=== PATIENT | male | born 1990 | race Caucasian/White ===

== ENCOUNTER 2025-03-01 11:34 | Emergency (ER) | payer SELFPAY ==
[2025-03-01 11:35] VITALS: BP 161/131; PULSE 78; RESP 16; TEMP 36.9; O2SAT 96
[2025-03-01 11:49] LABS: Hematocrit 45.7 % (40-54); Hemoglobin 15.3 g/dL (13.0-16.5); Immature Granulocytes Count 0.020 X10^3/uL (0.0-0.0); Mean Corp Hgb Conc 33.5 g/dL (32-36); Mean Corpuscular Volume 84.9 fL (80-94); Mean Platelet Vol. 9.2 fl (6.2-12.0); NRBC Flagged by Analyzer 0 % (0-5); POSITIVE DIFFERENTIAL YES; Platelet Count 474 K/mm3 (150-450); RBC Distribution Width CV 12.0 % (11.6-14.6); RBC Distribution Width SD 37.1 fl (35.1-43.9); Red Blood Count 5.38 M/mm3 (4.6-6.2); White Blood Count 10.9 K/mm3 (4.4-11.0)
[2025-03-01 11:50] LABS: Differential Indicated SCAN CRITERIA MET
[2025-03-01 12:00] VITALS: BMI 30.4
[2025-03-01 12:12] LABS: AST(SGOT) 54 U/L (<=37); Alanine Aminotransfer ALT/SGPT 54 U/L (<=46); Albumin, Serum 4.9 g/dL (3.5-5.0); Alkaline Phosphatase 43 U/L (40-129); Anion Gap 16 (5-15); BUN 13 mg/dL (4-19); BUN/Creat Ratio 13.4 RATIO (10-20); Calcium,Total 9.7 mg/dL (7.6-11.0); Carbon Dioxide 24.0 mmol/L (21.0-32.0); Chloride 100 mmol/L (98-108); Estimated Creatinine Clearance 122.52 ml/min (50-250); Globulin 2.9 g/dL (2.2-4.2); Glucose 125 mg/dL (70-99); Lipase 36 U/L (13-75); Potassium 3.3 mmol/L (3.3-5.1)
--- NOTE | 2025-03-01 12:52 | US_ITS ---
EXAM: US Abdomen Limited, Gallbladder CLINICAL INDICATION: PAIN TECHNIQUE: Real-time ultrasound of the right upper quadrant with image documentation. COMPARISON: No relevant prior studies available. FINDINGS: LIVER: Liver measures up to 6.3 cm. Fatty infiltration of the liver. GALLBLADDER: Negative Eldridge's sign was reported by the artistic associate. Gallbladder calculus measuring up to 1.1 cm. Gallbladder polyp measuring up to 0.4 cm. COMMON BILE DUCT: Unremarkable as visualized. No stones. No dilation. PANCREAS: Unremarkable as visualized. RIGHT KIDNEY: Unremarkable. No stones. No hydronephrosis. The right kidney measures 10.0 x 5.2 x 4.6 cm. US/Gallbladder IMPRESSION: 1. Fatty infiltration of the liver. 2. Cholelithiasis and gallbladder polyp. Reading [facility]
[2025-03-01 13:34] VITALS: PULSE 82; RESP 16
--- NOTE | 2025-03-01 13:45 | ED.VIS.GI ---
HPI HPI - GI History of Present Illness Chief Complaint: Abd Pain Informant: patient and spouse/S.O. Narrative Narrative: Presents here send other significant mid abdominal pain while at work. Started at 9 AM. He had to leave work he states he felt like his stomach going to burst. Ports symptoms started after eating peanut butter. Early for breakfast had a banana and oatmeal. Denies nausea or vomiting. On arrival to the ED symptoms resolved. A week ago had similar symptoms today to eat a large meal for dinner had sloppy Gómez. Symptoms woke him at 3 AM which was transient. Prior to that no issues of similar. No fever chills or sweats. No abdominal surgeries in the past. No urinary symptoms. Prior similar symptoms: Yes PFSH PFSH Home Medications ?Medication ?Instructions ?Recorded ?Last Taken ?Type NK 03/01/25 Unknown History Allergy/AdvReac Type Severity Reaction Status Date / Time No Known Allergies Allergy Verified 03/01/25 11:39 Social History Smoking Status: Never smoker ROS ROS ED Constitutional Constitutional ED: Denies fever(s) Cardiovascular Cardiovascular: Denies chest pain Respiratory/Chest Respiratory/Chest: Denies cough Gastrointestinal Gastrointestinal: Reports abdominal pain; Denies diarrhea or vomiting Genitourinary Genitourinary ED: Denies dysuria Musculoskeletal Musculoskeletal: Denies none Integumentary Denies rash or wounds Neurologic Neurologic: Denies weakness EXAM Physical Exam Const Vital Signs: 03/01/25 11:35 03/01/25 13:34 Temperature 98.4 F Temperature Source Oral Pulse Rate 78 82 Respiratory Rate 16 16 Blood Pressure 161/131 H Blood Pressure Mean 141 Pulse Ox 96 Oxygen Delivery Method Room Air Room Air Positive well nourished and well developed General Appearance ED: well developed and NAD HEENT Reports moist mucous membranes normocephalic and atraumatic Eyes General Eye ED: Yes normal appearance of both eyes Neck full ROM Chest Wall Chest: Negative for tenderness Resp normal respiratory effort and normal air movement Effort and Inspection: symmetric chest movement; Negative for respiratory distress Cardio regular rate, regular rhythm and no murmurs Peripheral Pulses: pulses 2+ throughout GI normal to inspection, nondistended, normoactive bowel sounds and non-tender GI Narrative: Negative Eldridge's or McBurney's tenderness. Palpation: Negative for guarding or rebound tenderness present Extremity normal to inspection General Extremety ED: Negative for edema or tenderness General Extremity: Negative for edema Neuro oriented x3 and no sensory deficits noted Sensorium / Orientation: awake and alert Skin no rashes or lesions noted and no wounds MDM MDM MDM Narrative Medical decision making narrative: Interventions / MDM: Differential diagnosis: Biliary colic, gallstones, gallbladder polyp Diagnosis considered but do not suspect: Pancreatitis however lipase normal. No clinical cholecystitis. My EKG interpretation: N/A Imaging independently reviewed and interpreted by myself: Right upper quadrant ultrasound: 1.1 cm gallstone, gallbladder polyp with 0.4 cm. No pericholecystic fluid. External documents reviewed: N/A Test considered but not ordered:N/A ED course: Patient symptoms resolved during my examination. Nursing protocol was initiated prior to my evaluation. Labs returned white count normal at 10.9 lipase normal. Slight elevated liver enzymes AST 54 and ALT of 54. Total bili was 0.86. However with history potential biliary colic with eating oily foods twice. I will obtain a right upper quadrant ultrasound for further evaluation. 1520: Patient remains asymptomatic gallstones with gallbladder polyp on ultrasound. Discussed bland diet avoiding dairy foods, greasy foods, fatty foods. I spoke with surgeon Dr. Mancini, who will follow-up with him in the office. Patient understands agrees with plan. All questions were answered. Re-evaluation: stable Disposition discussed with patient/family/significant other: Patient and significant other Case discussed with consulting clinician: General Surgery This note was generated with [employer] dictation software. It may contain incorrect words, spelling, and punctuation that were not noted in checking the note before signing. Lab Data Attestation: I reviewed the patient's lab results. Labs: Laboratory Results - last 24 hr 03/01/25 11:15 WBC 10.9 RBC 5.38 Hgb 15.3 Hct 45.7 MCV 84.9 MCH 28.4 MCHC 33.5 RDW Std Deviation 37.1 RDW Coeff of Vilma 12.0 Plt Count 474 H MPV 9.2 Immature Gran % (Auto) 0.200 Neut % (Auto) 40.1 L Lymph % (Auto) 48.4 H [place] % (Auto) 9.0 Eos % (Auto) 1.6 Baso % (Auto) 0.7 Absolute Neuts (auto) 4.4 Absolute Lymphs (auto) 5.28 H Nucleated RBC % 0 Sodium 140 Potassium 3.3 Chloride 100 Carbon Dioxide 24.0 Anion Gap 16 H BUN 13 Creatinine 1.00 Estim Creat Clear Calc 122.52 Est GFR (MDRD) Non-Af 100 BUN/Creatinine Ratio 13.4 Glucose 125 H Calcium 9.7 Total Bilirubin 0.86 AST 54 H ALT 54 H Alkaline Phosphatase 43 Total Protein 7.8 Albumin 4.9 Globulin 2.9 Albumin/Globulin Ratio 1.7 Lipase 36 Radiography Diagnostic Testing: Clinical Impression(s) from Imaging Studies Gallbladder Ultrasound 03/01/25 12:52 IMPRESSION: 1. Fatty infiltration of the liver. 2. Cholelithiasis and gallbladder polyp. Reading Location: [facility] Discharge Plan Triage Chief Complaint: Abd Pain ED Provider: Loy Jennings Dx/Rx/DC Orders Clinical Impression: Biliary colic, Gallstone, Gallbladder polyp Instructions: ED Gallstones with Biliary Colic Prescriptions: No Action NK Primary Care Provider: Eitan Michael Referrals: Eitan Michael MD [Primary Care Provider] - Angie Mancini MD [Med Staff - Active Staff] - 1-2 Weeks Activity Restrictions/Additional Instructions: Gallstones with gallbladder polyp. Avoid dairy foods, greasy foods, fatty foods. Chase diet. Follow-up with Dr. Mancini. If symptoms return or worsens, return to the ED for reevaluation. Print Language: Urdu Disposition Disposition: Home, Self Care
[2025-03-01 15:42] VITALS: BP 120/70; PULSE 66; RESP 12; TEMP 36.8; O2SAT 100
== END 2025-03-01 15:43 | disposition home or self-care (01) ==
PROVIDERS: Emergency Provider Emergency Medicine; PCP Family Medicine; Visit Provider Emergency Medicine
DX: K80.70 Calculus of gallbladder and bile duct without cholecystitis without obstruction (principal)
CPT/HCPCS: 76705; 80053; 83690; 85025; 99285

== ENCOUNTER → 2025-03-10 | Outpatient (CLI) | payer SELFPAY ==
[2025-03-10 14:23] LABS: AST(SGOT) 27 U/L (<=37); Alanine Aminotransfer ALT/SGPT 114 U/L (<=46); Albumin, Serum 4.8 g/dL (3.5-5.0); Alkaline Phosphatase 49 U/L (40-129); Bilirubin, Direct 0.26 mg/dL (0.00-0.30); Globulin 2.8 g/dL (2.2-4.2)
== END | disposition home or self-care (01) ==
PROVIDERS: PCP Family Medicine; Referring Provider Surgery; Visit Provider Surgery
DX: R79.89 Other specified abnormal findings of blood chemistry (principal)
CPT/HCPCS: 36415; 80076

== ENCOUNTER → 2025-04-05 | Outpatient (CLI) | payer SELFPAY ==
[2025-04-05 17:47] LABS: AST(SGOT) 24 U/L (<=37); Alanine Aminotransfer ALT/SGPT 35 U/L (<=46); Albumin, Serum 4.7 g/dL (3.5-5.0); Alkaline Phosphatase 41 U/L (40-129); Bilirubin, Direct 0.24 mg/dL (0.00-0.30); Globulin 2.7 g/dL (2.2-4.2)
== END | disposition home or self-care (01) ==
LOC: LAB 16:50
PROVIDERS: PCP Family Medicine; Referring Provider Physician Assistant; Visit Provider Physician Assistant
DX: R10.11 Right upper quadrant pain (principal)
CPT/HCPCS: 36415; 80076

== ENCOUNTER 2025-04-08 07:34 | Day surgery (SDC) | payer SELFPAY ==
[2025-04-08] VITALS (9 sets, daily range): BP systolic 115–149; BP diastolic 72–100; PULSE 71–84; RESP 16; TEMP 36.1–36.6; O2SAT 94–100; BMI 29.5
--- OUTSIDE RECORDS SUMMARY | 2025-04-08 07:55 | XMS RPT_ITS | CCD ---
Author Organization [facility] Care Team Providers Care General Manager In Training Name Role Phone Dr. Loy Jennings DO Emergency Provider [phone] Alec JOHNSON, Dr. Laird Primary Care Provider Alec JOHNSON, Eitan Fernandez Unavailable Chandra JOHNSON, Adan Murphy Unavailable Valentín TELEVISION NEWS PHOTOGRAPHER, Phyllis Peoples Unavailable Unavailable Alfredo TELEVISION NEWS PHOTOGRAPHER, Julieta Garay Unavailable Unavailab le Unavailable Unavailable Dr. Loy Jennings DO Attending Provider Dr. Eitan Michael MD Referring Provider Dr. Angie Mancini MD Attending Provider Addis JOHNSON, Dr. Adams Referring Provider Eitan Michael Primary Care Unavailable Angie Mancini Attending Unavailable Freda Ford Attending Unavailable Freda Ford Referring Unavailable Eitan Michael Primary Care Unavailable Eitan Michael Primary Care Unavailable Eitan Michael Referring Unavailable Angie Mancini Attending Unavailable Eitan Michael Referring Unavailable Angie Mancini Attending Unavailable Eitan Michael Primary Care Unavailable Eitan Michael Primary Care Unavailable Angie Mancini Attending Unavailable Angie Mancini Referring Unavailable Eitan Michael Primary Care Unavailable Loy Jennings Attending Unavailable Freda Soto PA-C Attending Provider Freda Soto PA-C Referring Provider Medications Current Medications Medication Drug Class(es) Dates Sig (Normalized) Sig (Original) omeprazole 40 mg delayed release oral capsule (3 sources) Proton Pump Inhibitor Start: 03-10-2025 take 1 capsule by mouth once daily Omeprazole 40 mg capsule,delayed release(DR/EC) Active 40 mg PO daily 30 March 10, 2025 12:00am swallow whole; do not crush, chew, dissolve, cut, break raNITIdine 150 mg oral tablet (5 sources) Histamine-2 Receptor Antagonist Start: 12-10-2017 take 1 tablet by mouth twice daily RaNITidine HCl 150 MG Oral Tablet ; 1 (one) Tablet bid for 0 days Quantity: 60 {Tablet} Refills: 0 Ordered: 10-Dec-2017 MD Eitan Micahel Start: 10-Dec-2017 Completed/Discontinued Medications Medication Drug Class(es) Dates Sig (Normalized) Sig (Original) acyclovir 800 mg oral tablet (5 sources) Herpesvirus Nucleoside Analog DNA Polymerase Inhibitor, Herpes Simplex Virus Nucleoside Analog DNA Polymerase Inhibitor, Herpes Zoster Virus Nucleoside Analog DNA Polymerase Inhibitor Start: 03-01-2014 End: 03-08-2014 ACYCLOVIR, 800MG (Oral Tablet) ; 1 (one) Tablet every four hours, five times daily for 7 days Quantity: 35 {Tablet} Refills: 0 Ordered: 01-Mar-2014 MD Adan Artis Start: 01-Mar-2014 End: 08-Mar-2014 Status: Inactive Problems Active Problems Problem Classification Problem Date Documented Date Episodic/Chronic Abdominal pain (14 sources) Right upper quadrant pain; Translations: [Right upper quadrant pain] Onset: 03-08-2025 03-11-2025 Episodic Biliary tract disease (19 sources) Gallstone; Translations: [Calculus of gallbladder without cholecystitis without obstruction] Onset: 04-06-2025 03-01-2025 Episodic Esophageal disorders (10 sources) Gastroesophageal reflux disease; Translations: [Gastro-esophageal reflux disease without esophagitis] 12-10-2017 Chronic Other nutritional; endocrine; and metabolic disorders (10 sources) Overweight in adulthood with body mass index of 25 or more but less than 30; Translations: [Body mass index (BMI) 29.0-29.9, adult] 12-10-2017 Episodic Other screening for suspected conditions (not mental disorders or infectious disease) (7 sources) Other specified abnormal findings of blood chemistry; Translations: [Elevated liver function tests] Onset: 04-06-2025 03-10-2025 Episodic Comment on above: Resolved Viral infection (10 sources) Herpes zoster; Translations: [Zoster without complications] 03-01-2014 Episodic Past or Other Problems Problem Classification Problem Date Documented Da te Episodic/Chronic Unclassified (5 sources) Chest pain - The onset of the pain has been gradual and has been occurring in an intermittent pattern for 2 years (started 2 years ago but then cut back caffeine and watched diet and got better but symptoms started up again last fall. Initially it was pressure feeling in mid sternal area but now is more of a pain.). The pain is described as a dull ache. The pain is precipitated by eating. The symptoms are aggravated by food. The symptoms have no relieving factors. There have been no previous evaluations. Note for Chest pain: will radiate under rib cage at times but not sure which side. Pt not sure if related but seems to be getting frequent canker sores in mouth that goes along with time frame of chest pain. No family hx of anything that pt is aware of. reviewed by [facility] 12-10-2017 Unclassified (5 sources) Rash - The onset of the rash has been sudden and has been occurring in a persistent pattern for 4 days. The course has been increasing. The rash is characterized as red and raised above the skin. The rash was first seen on the face (right sided). There has been no progression. There has been associated pain (tingling), erythema and edema. There has been associated pain. 03-01-2014 Unclassified (5 sources) Form Completion Physicals - The patient feels well with no complaints, has good energy level and is sleeping well. The patient has an appropriate balanced diet and takes suppemental vitamins and sleeps on average 6 hours per night. Habits include caffeine use. 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 reviewed by [facility] 02-09-2014 Results Test Name Value Interpretation Reference Range Facility Surgery Visit Reporton 04-06 Surgery Visit Report [facility] [address] [place] [address] OFFICE VISIT Date of Service: 04/06/25 MR#: [id number] Acct: [id number] Name: JESSY TEJEDA Rep #: [id number] : 1990 Provider: Dr. Angie rodrigues MD Age/Sex: 34/M Location: [facility] Status: Signed Intake Vital Signs 03/10/25 13:14 04/06/25 15:02 Height 5 ft 11 in 5 ft 11 in Weight: 215 lb BMI 29.9 BP 128/89 H 142/75 H Blood Pressure Location Rt brachial Rt brachial Position Sitting Sitting Respiration 18 17 Pulse 72 75 Pulse Source Monitor Monitor Temp 97.2 F L Temp Source Temporal Pulse Oximetry (%) 99 100 Oxygen Delivery Method room air room air Intake Visit Reasons: MED CHECK Chief Complaint: med check/gallbladder Is patient in pain?: Yes (occasional twinges/aches right side.) Allergies No Known Allergies Allergy (Verified 04/06/25 15:03) Medications ???Medication ???Instructions ???Recorded ???Confirmed ???Type omeprazole 40 mg capsule,delayed 40 mg PO QDAY #30 caps 03/10/25 Rx release PFSH Medical History Cholelithiases Social History (Updated 03/10/25 @ 13:14 by Jacy De Leon LPN) Smoking Status: Never smoker alcohol intake: never substance use type: does not use HPI HPI HPI: 34-year-old male presents for follow-up for right upper quadrant pain, epigastric pain, cholelithiasis, elevated liver functions. Patient's liver functions are normal on recheck before this appointment. Patient states he does occasionally get some right upper quadrant discomfort depending on what he eats but his sour stomach has improved with the omeprazole. ROS General General: No weight change, appetite, fatigue, colon cancer, breast cancer or weakness HEENT HEENT: No difficulty swallowing, eye injury, eye surgery, swollen glands or hoarseness Endo Endocrine: No thyroid disease, diabetes mellitus, thyroid cancer, Hair loss, heat intolerance or cold intolerance Skin Skin: No rash or changing moles Musc Musculoskeletal: No back problems, arthritis, rheumatoid arthritis, gout or joint pain Cardio Cardiovascular: Yes murmur; No pacemaker, heart disease, atrial fibrillation, high blood pressure, heart attack, heart stent, palpitations, shortness of breath with exertion or chest pain Psych Psychiatric: No depression, anxiety or hearing voices Resp Respiratory: No shortness of breath, No sleep apnea, No cough, No COPD, No asthma, No emphysema and No wheezing Gastro Gastrointestinal: Yes abdominal pain, No nausea or vomiting, No diarrhea, No constipation, No blood in stool, No acid reflux, No hemorrhoids, No ulcers, Yes gallbladder problem and No black,tarry stools [place] Hematologic: No blood thinners, No blood disorders, No bleeding, No anemia and No blood clots Neuro Neurologic: No numbness, No tingling and No weakness Exam Const General: cooperative, healthy appearing, comfortable and no acute distress [facility] Head: normocephalic and atraumatic Neck Neck: supple Resp Effort Inspection: normal respiratory effort Cardio Rate: regular rate GI Inspection: non-distended Skin General: no rashes or lesions noted Neuro General: CN's II-XI intact bilaterally Extrem General: normal to inspection Psych Mental Status: mental status grossly normal Attitude: cooperative Assessment and Plan Assessment and Plan (1) Cholelithiases: Status: Acute (2) Elevated liver function tests: Status: Acute Comment: Resolved (3) Epigastric pain: Status: Acute (4) RUQ pain: Status: Acute Orders: Orders Liver Profile 04/05/25 R10.11 - Right upper quadrant pain Plan Let patient stay on the omeprazole 40 mg p.o. daily Reviewed the anatomy with the patient and discussed the procedure: Robotic/laparoscopi c cholecystectomy with possible cholangiograms, possible open. Review risks including but not limited to bleeding, infection, hernia, bile leak, retained gallstones requiring another procedure ERCP- Endoscopic Retrograde Cholangiopancreatog asher, injury to another organ (bile ducts, common bile duct, small bowel, etc.) and conversion to an open procedure. All questions were answered. Angie Mancini M.D. Pager: [phone] [facility] [address] [place] [address], [address] [place] [address] Office: [phone] Coding Level of Care Code Off vis,est,level 3 Diagnoses Cholelithiases K80.20 Elevated liver function tests R79.89 Epigastric pain R10.13 RUQ pain R10.11 04/06/25 1513 Date Angie Mancini MD Cosigner Signature: Date (more content not included)... Normal [facility] Bilirubin directOrdered By: Freda Soto on 04-05-2025 Bilirubin.direct [Mass/Vol] 0.24 mg/dL 0.00-0.30 [facility] Bilirubin, totalOrdered By: Freda Soto on 04-05-2025 Bilirubin [Mass/Vol] 0.61 mg/dL 0.00-1.30 [facility] - Chemistry and C hemistry - challengeOrdered By: Freda Soto on 04-05-2025 AST [Catalytic activity/Vol] 24 U/L <38 [facility] Liver Profileon 04-05-2025 Albumin [Mass/Vol] 4.7 g/dL Normal 3.5-5.0 [facility] Comment on above: Performed By: #### L 500.3400 #### [facility] [address] [place], [address] ALK PHOS 41 U/L Normal 40-129 [facility] Comment on above: Performed By: #### L 500.3400 #### [facility] [address] [place], [address] ALT [Catalytic activity/Vol] 35 U/L Normal <=46 [facility] Comment on above: Performed By: #### L 500.3400 #### [facility] [address] [place], [address] AST [Catalytic activity/Vol] 24 U/L Normal <=37 [facility] Comment on above: Performed By: #### L 500.3400 #### [facility] [address] [place], [address] Bilirubin [Mass/Vol] 0.61 mg/dL Normal 0.00-1.30 [facility] Comment on above: Performed By: #### L 500.3400 #### [facility] [address] [place], [address] Bilirubin.direct [Mass/Vol] 0.24 mg/dL Normal 0.00-0.30 [facility] Comment on above: Performed By: #### L 500.3400 #### [facility] [address] [place], [place], [id number] ([phone] Globulin (S) [Mass/Vol] 2.7 g/dL Normal 2.2-4.2 [facility] Comment on above: Performed By: #### L 500.3400 #### [facility] [address] [place], [address] T PROT 7.4 g/dL Normal 5.9-8.4 [facility] Comment on above: Performed By: #### L 500.3400 #### [facility] [address] [place], [place], [id number] ([phone]) Serum globulin measurementOr dered By: Freda Soto on 04-05-2025 Globulin (S) [Mass/Vol] 2.7 g/dL 2.2-4.2 [facility] Serum or plasma alanine rome otransferase (ALT) measurementOrdered By: Freda Soto on 04-05-2025 ALT [Catalytic activity/Vol] 35 U/L <47 [facility] Serum or plasma albumin george urement (mass/volume)Ordered By: Freda Soto on 04-05-2025 Albumin [Mass/Vol] 4.7 g/dL 3.5-5.0 [facility] Serum or plasma alkaline brandin sphatase measurementOrdered By: Freda Soto on 04-05-2025 ALP [Catalytic activity/Vol] 41 U/L 40-129 [facility] Total proteinOrdered By: Ronel Soto on 04-05-2025 Protein [Mass/Vol] 7.4 g/dL 5.9-8.4 [facility] Bilirubin directOrdered By: Angie Mancini on 03-10-2025 Bilirubin.direct [Mass/Vol] 0.26 mg/dL 0.00-0.30 [facility] Bilirubin, totalOrdered By: Angie Mancini on 03-10-2025 Bilirubin [Mass/Vol] 0.65 mg/dL 0.00-1.30 [facility] - Chemistry and C hemistry - challengeOrdered By: Angie Mancini on 03-10-2025 AST [Catalytic activity/Vol] 27 U/L <38 [facility] Liver Profileon 03-10-2025 Albumin [Mass/Vol] 4.8 g/dL Normal 3.5-5.0 [facility] Comment on above: Performed By: #### L 500.3400 #### [facility] [address] [place], [address] ALK PHOS 49 U/L Normal 40-129 [facility] Comment on above: Performed By: #### L 500.3400 #### [facility] [address] [place], [address] ALT [Catalytic activity/Vol] 114 U/L High <=46 [facility] Comment on above: Performed By: #### L 500.3400 #### [facility] [address] [place], [address] AST [Catalytic activity/Vol] 27 U/L Normal <=37 [facility] Comment on above: Performed By: #### L 500.3400 #### [facility] [address] [place], [address] Bilirubin [Mass/Vol] 0.65 mg/dL Normal 0.00-1.30 [facility] Comment on above: Performed By: #### L 500.3400 #### [facility] [address] [place], [address] Bilirubin.direct [Mass/Vol] 0.26 mg/dL Normal 0.00-0.30 [facility] Comment on above: Performed By: #### L 500.3400 #### [facility] [address] [place], [address] Globulin (S) [Mass/Vol] 2.8 g/dL Normal 2.2-4.2 [facility] Comment on above: Performed By: #### L 500.3400 #### [facility] [address] [place], [place], [address] T PROT 7.6 g/dL Normal 5.9-8.4 [facility] Comment on above: Performed By: #### L 500.3400 #### [facility] [address] [place], [place], [address] Serum globulin measurementOr dered By: Angie Mancini on 03-10-2025 Globulin (S) [Mass/Vol] 2.8 g/dL 2.2-4.2 [facility] Serum or plasma alanine rome otransferase (ALT) measurementOrdered By: Angie Mancini on 03-10-2025 ALT [Catalytic activity/Vol] 114 U/L High <47 [facility] Serum or plasma albumin george urement (mass/volume)Ordered By: Angie Mancini on 03-10-2025 Albumin [Mass/Vol] 4.8 g/dL 3.5-5.0 [facility] Serum or plasma alkaline brandin sphatase measurementOrdered By: Angie Mancini on 03-10-2025 ALP [Catalytic activity/Vol] 49 U/L 40-129 [facility] Surgery Visit Reporton 03-10 Surgery Visit Report [facility] [address] [place] [address] OFFICE VISIT Date of Service: 03/10/25 MR#: [id number] Acct: [id number] Name: JESSY TEJEDA Rep #: [id number] : 1990 Provider: Dr. Angie rodrigues MD Age/Sex: 34/M Location: [facility] Status: Signed Intake Vital Signs 03/01/25 11:35 03/10/25 13:14 Height 5 ft 11 in 5 ft 11 in Weight: 215 lb BMI 29.9 BP 128/89 H Blood Pressure Location Rt brachial Position Sitting Respiration 18 Pulse 72 Pulse Source Monitor Temp 97.2 F L Temp Source Temporal Pulse Oximetry (%) 99 Oxygen Delivery Method room air Intake Visit Reasons: ER F/U- GALLBLADDER - SELF PAY Chief Complaint: ER F/U- GALLBLADDER Accompanied by: and daughter Is patient in pain?: No Allergies No Known Allergies Allergy (Verified 03/10/25 13:15) Medications ???Medication ???Instructions ???Recorded ???Confirmed ???Type omeprazole 40 mg capsule,delayed 40 mg PO QDAY #30 caps 03/10/25 Rx release PFSH Medical History (Updated 03/11/25 @ 15:[address] Angie Mancini MD) Cholelithiases Social History (Updated 03/10/25 @ 13:14 by Jacy De Leon LPN) Smoking Status: Never smoker alcohol intake: never substance use type: does not use HPI HPI HPI: 34-year-old male presents due to right upper quadrant pain epigastric pain follow-up from ER. Patient states pain started after having coffee and some peanut butter. However patient's other 2 episodes did start in the middle of the night after eating more than 4 hours prior pizza and sloppy [employer]. Patient does admit to having issues with bloating in the right upper quadrant/epigastric pain. Patient currently denies any abdominal pain. Patient states that he was told in the past he may have a hiatal hernia. At the ER on 03/01 patient's LFTs were slightly elevated with AST and ALT of 54 each the other LFTs were normal. Patient does not have previous LFTs here. Patient also had a gallbladder ultrasound which showed cholelithiasis and 1 cm stone and a gallbladder polyp about 4 mm no pericholecystic fluid or Eldridge sign was detected during ultrasound, normal common bile duct. ROS General General: No weight change, appetite, fatigue, colon cancer, breast cancer or weakness HEENT HEENT: No difficulty swallowing, eye injury, eye surgery, swollen glands or hoarseness Endo Endocrine: No thyroid disease, diabetes mellitus, thyroid cancer, Hair loss, heat intolerance or cold intolerance Skin Skin: No rash or changing moles Musc Musculoskeletal: No back problems, arthritis, rheumatoid arthritis, gout or joint pain Cardio Cardiovascular: Yes murmur; No pacemaker, heart disease, atrial fibrillation, high blood pressure, heart attack, heart stent, palpitations, shortness of breath with exertion or chest pain Psych Psychiatric: No depression, anxiety or hearing voices Resp Respiratory: No shortness of breath, No sleep apnea, No cough, No COPD, No asthma, No emphysema and No wheezing Gastro Gastrointestinal: Yes abdominal pain, No nausea or vomiting, No diarrhea, No constipation, No blood in stool, No acid reflux, No hemorrhoids, No ulcers, Yes gallbladder problem and No black,tarry stools [place] Hematologic: No blood thinners, No blood disorders, No bleeding, No anemia and No blood clots Neuro Neurologic: No numbness, No tingling and No weakness Exam Const General: cooperative, healthy appearing, comfortable and no acute distress HENTX Head: normocephalic and atraumatic Neck Neck: supple Resp Effort Inspection: normal respiratory effort Cardio Rate: regular rate GI Inspection: non-distended Palpation: soft and nontender Skin General: no rashes or lesions noted Neuro General: CN's II-XI intact bilaterally Extrem General: normal to inspection Psych Mental Status: mental status grossly normal Attitude: cooperative Assessment and Plan Assessment and Plan (1) Cholelithiases: Status: Acute (2) Elevated liver function tests: Status: Acute (3) Epigastric pain: Status: Acute (4) RUQ pain: Status: Acute Orders: Orders Liver Profile 03/10/25 R79.89 - Other specified abnormal findings of blood chemistry Medications: New omeprazole swallow whole; do not crush, chew, dissolve, cut, break 40 mg PO QDAY 30 caps 3RF Plan Discussed with patient plan to recheck LFTs unsure if they would be elevated due to the gallbladder as there is no inflammation seen on ultrasound of the gallbladder. Discussed that these enzymes are higher would consider doing a laparoscopic cholecystectomy sooner rather than later. Overall patient's history of abdominal pain may be more gastric versus biliary in nature. Will have patient try omeprazole 4 (more content not included)... Normal [facility] Total proteinOrdered By: Jeferson Mancini on 03-10-2025 Protein [Mass/Vol] 7.6 g/dL 5.9-8.4 [facility] Absolute lymphocyte countOrd ered By: ED PROVIDER on 03-01-2025 Lymphocytes Auto (Unsp spec) [#/Vol] 5.28 10*3/uL High 0.83-4.51 [facility] Absolute neutrophil countOrd ered By: ED PROVIDER on 03-01-2025 Neutrophils (Bld) [#/Vol] 4.4 10*3/uL 2.0-7.7 [facility] Anion gap in Serum or Plasma Ordered By: ED PROVIDER on 03-01-2025 Anion gap [Moles/Vol] 16 mmol/L High 5-15 [facility] Automated lymphocyte count a s percentage of total leukocytesOrdered By: ED PROVIDER on 03-01-2025 Lymphocytes/100 WBC Auto (Unsp spec) 48.4 % High 19-41 [facility] BUN/creatinine ratioOrdered By: ED PROVIDER on 03-01-2025 Urea nitrogen/Creatinine [Mass ratio] 13.4 mg/mg 10-20 [facility] Basophil percentageOrdered B y: ED PROVIDER on 03-01-2025 Basophils/100 WBC (Bld) 0.7 % 0-1 [facility] Bilirubin, totalOrdered By: ED PROVIDER on 03-01-2025 Bilirubin [Mass/Vol] 0.86 mg/dL 0.00-1.30 [facility] CBC W/Diff, Automatedon 02-10 Absolute Lymph 5.28 X10 3/uL High 0.83-4.51 [facility] Comment on above: Performed By: #### L 500.4050, L501.2450, L100.0100 #### [facility] [address] [place], [address] Absolute Neut 4.4 X10 3/uL Normal 2.0-7.7 [facility] Comment on above: Performed By: #### L 500.4050, L501.2450, L100.0100 #### [facility] [address] [place], [address] Basophils/100 WBC (Bld) 0.7 % Normal 0-1 [facility] Comment on above: Performed By: #### L 500.4050, L501.2450, L100.0100 #### [facility] [address] [place], [address] Eosinophils/100 WBC (Bld) 1.6 % Normal 0-5 [facility] Comment on above: Performed By: #### L 500.4050, L501.2450, L100.0100 #### [facility] [address] [place], [address] Erythrocyte distribution width (RBC) [Ratio] 12.0 % Normal 11.6-14.6 [facility] Comment on above: Performed By: #### L 500.4050, L501.2450, L100.0100 #### [facility] [address] [place], [address] Hematocrit (Bld) [Volume fraction] 45.7 % Normal 40-54 [facility] Comment on above: Performed By: #### L 500.4050, L501.2450, L100.0100 #### [facility] [address] [place], [address] Hemoglobin (Bld) [Mass/Vol] 15.3 g/dL Normal 13.0-16.5 [facility] Comment on above: Performed By: #### L 500.4050, L501.2450, L100.0100 #### [facility] [address] [place], [address] IG% 0.200 Normal 0.0-0.9 [facility] Comment on above: Result Comment: IG% - Immature Granulocytes (promyelocytes, myelocytes and metamyelocytes) > 1% indicates that a LEFT SHIFT is Present. Performed By: #### L 500.4050, L501.2450, L100.0100 #### [facility] [address] [place], [address] Lymphocytes/100 WBC (Bld) 48.4 % High 19-41 [facility] Comment on above: Performed By: #### L 500.4050, L501.2450, L100.0100 #### [facility] [address] [place], [address] MCH (RBC) [Entitic mass] 28.4 pg Normal 27.0-32.0 [facility] Comment on above: Performed By: #### L 500.4050, L501.2450, L100.0100 #### [facility] [address] [place], [address] MCHC (RBC) [Mass/Vol] 33.5 g/dL Normal 32-36 [facility] Comment on above: Performed By: #### L 500.4050, L501.2450, L100.0100 #### [facility] [address] [place], [address] MCV (RBC) [Entitic vol] 84.9 fL Normal 80-94 [facility] Comment on above: Performed By: #### L 500.4050, L501.2450, L100.0100 #### [facility] [address] [place], [address] Monocytes/100 WBC (Bld) 9.0 % Normal 0-10 [facility] Comment on above: Performed By: #### L 500.4050, L501.2450, L100.0100 #### [facility] [address] [place], [address] Neutrophils/100 WBC (Bld) 40.1 % Low 47-70 [facility] Comment on above: Performed By: #### L 500.4050, L501.2450, L100.0100 #### [facility] [address] [place], [address] Nucleated RBC (Bld) [#/Vol] 0 10*3/uL Normal 0-5 [facility] Comment on above: Performed By: #### L 500.4050, L501.2450, L100.0100 #### [facility] [address] [place], [address] Platelet mean volume (Bld) [Entitic vol] 9.2 fL Normal 6.2-12.0 [facility] Comment on above: Performed By: #### L 500.4050, L501.2450, L100.0100 #### [facility] [address] [place], [address] Platelets (Bld) [#/Vol] 474 10*3/uL High 150-450 [facility] Comment on above: Performed By: #### L 500.4050, L501.2450, L100.0100 #### [facility] [address] [place], [address] RBC (Bld) [#/Vol] 5.38 10*6/uL Normal 4.6-6.2 [facility] Comment on above: Performed By: #### L 500.4050, L501.2450, L100.0100 #### [facility] [address] [place], [address] RDW SD 37.1 fl Normal 35.1-43.9 [facility] Comment on above: Performed By: #### L 500.4050, L501.2450, L100.0100 #### [facility] [address] [place], [address] WBC (Bld) [#/Vol] 10.9 10*3/uL Normal 4.4-11.0 [facility] Comment on above: Performed By: #### L 500.4050, L501.2450, L100.0100 #### [facility] [address] [place], [address] Carbon dioxide, total [Moles /volume] in Central venous bloodOrdered By: ED PROVIDER on 03-01-2025 CO2 [Moles/Vol] 24.0 mmol/L 21.0-32.0 [facility] Chloride assayOrdered By: ED PROVIDER on 03-01-2025 Chloride [Moles/Vol] 100 mmol/L 98-108 [facility] Metabolic Prof ilon 03-01-2025 Albumin [Mass/Vol] 4.9 g/dL Normal 3.5-5.0 [facility] Comment on above: Performed By: #### L 500.4050, L501.2450, L100.0100 #### [facility] [address] [place], [address] Albumin/Globulin [Mass ratio] 1.7 {ratio} Normal 0.9-2.4 [facility] Comment on above: Performed By: #### L 500.4050, L501.2450, L100.0100 #### [facility] [address] [place], [address] ALK PHOS 43 U/L Normal 40-129 [facility] Comment on above: Performed By: #### L 500.4050, L501.2450, L100.0100 #### [facility] [address] [place], [address] ALT [Catalytic activity/Vol] 54 U/L High <=46 [facility] Comment on above: Performed By: #### L 500.4050, L501.2450, L100.0100 #### [facility] [address] [place], [address] AST [Catalytic activity/Vol] 54 U/L High <=37 [facility] Comment on above: Performed By: #### L 500.4050, L501.2450, L100.0100 #### [facility] [address] [place], [address] Bilirubin [Mass/Vol] 0.86 mg/dL Normal 0.00-1.30 [facility] Comment on above: Performed By: #### L 500.4050, L501.2450, L100.0100 #### [facility] [address] [place], [address] BUN/CRE 13.4 RATIO Normal 10-20 [facility] Comment on above: Performed By: #### L 500.4050, L501.2450, L100.0100 #### [facility] [address] [place], [address] Calcium [Mass/Vol] 9.7 mg/dL Normal 7.6-11.0 [facility] Comment on above: Performed By: #### L 500.4050, L501.2450, L100.0100 #### [facility] [address] [place], [address] Chloride [Moles/Vol] 100 mmol/L Normal 98-108 [facility] Comment on above: Performed By: #### L 500.4050, L501.2450, L100.0100 #### [facility] [address] [place], [address] CO2 [Moles/Vol] 24.0 mmol/L Normal 21.0-32.0 [facility] Comment on above: Performed By: #### L 500.4050, L501.2450, L100.0100 #### [facility] [address] [place], [address] Creatinine [Mass/Vol] 1.00 mg/dL Normal 0.70-1.20 [facility] Comment on above: Performed By: #### L 500.4050, L501.2450, L100.0100 #### [facility] [address] [place], [address] ECRCL 122.52 ml/min Normal 50-250 [facility] Comment on above: Performed By: #### L 500.4050, L501.2450, L100.0100 #### [facility] [address] [place], [address] GAP 16 High 5-15 [facility] Comment on above: Performed By: #### L 500.4050, L501.2450, L100.0100 #### [facility] [address] [place], [address] GFR/1.73 sq M.predicted among non-blacks MDRD (S/P/Bld) [Vol rate/Area] 100 mL/min/{1.73_m2} Normal >60 [facility] Comment on above: Result Comment: mL/m in/1.73m2 CKD-EPI Creatinine Equation (2020) Performed By: #### L 500.4050, L501.2450, L100.0100 #### [facility] [address] [place], [address] Globulin (S) [Mass/Vol] 2.9 g/dL Normal 2.2-4.2 [facility] Comment on above: Performed By: #### L 500.4050, L501.2450, L100.0100 #### [facility] [address] [place], [address] Glucose [Mass/Vol] 125 mg/dL High 70-99 [facility] Comment on above: Performed By: #### L 500.4050, L501.2450, L100.0100 #### [facility] [address] [place], [address] Potassium [Moles/Vol] 3.3 mmol/L Normal 3.3-5.1 [facility] Comment on above: Performed By: #### L 500.4050, L501.2450, L100.0100 #### [facility] [address] [place], [address] Sodium [Moles/Vol] 140 mmol/L Normal 133-145 [facility] Comment on above: Performed By: #### L 500.4050, L501.2450, L100.0100 #### [facility] [address] [place], [address] T PROT 7.8 g/dL Normal 5.9-8.4 [facility] Comment on above: Performed By: #### L 500.4050, L501.2450, L100.0100 #### [facility] [address] [place], [address] Urea nitrogen [Mass/Vol] 13 mg/dL Normal 4-19 [facility] Comment on above: Performed By: #### L 500.4050, L501.2450, L100.0100 #### [facility] [address] [place], [address] Emergency Department Summary on 03-01-2025 Emergency Department Summary [facility] Medical Records Department [address] [place] [address] Emergency Department Summary 03/01/25 MR#: [id number] Acct: [id number] Name: JESSY TEJEDA Rep #: [id number] : 1990 34 From: Loy Iverson PCP: Dr. Eitan Michael MD Status:REG ER Location: ED HPI HPI - GI History of Present Illness Chief Complaint: Abd Pain Informant: patient and spouse/S.O. Narrative Narrative: Presents here send other significant mid abdominal pain while at work. Started at 9 AM. He had to leave work he states he felt like his stomach going to burst. Ports symptoms started after eating peanut butter. Early for breakfast had a banana and oatmeal. Denies nausea or vomiting. On arrival to the ED symptoms resolved. A week ago had similar symptoms today to eat a large meal for dinner had sloppy Gómez. Symptoms woke him at 3 AM which was transient. Prior to that no issues of similar. No fever chills or sweats. No abdominal surgeries in the past. No urinary symptoms. Prior similar symptoms: Yes PFSH PFSH Home Medications ???Medication ???Instructions ???Recorded ???Last Taken ???Type NK 03/01/25 Unknown History Allergy/AdvReac Type Severity Reaction Status Date / Time No Known Allergies Allergy Verified 03/01/25 11:39 Social History Smoking Status: Never smoker ROS ROS ED Constitutional Constitutional ED: Denies fever(s) Cardiovascular Cardiovascular: Denies chest pain Respiratory/Chest Respiratory/Chest: Denies cough Gastrointestinal Gastrointestinal: Reports abdominal pain; Denies diarrhea or vomiting Genitourinary Genitourinary ED: Denies dysuria Musculoskeletal Musculoskeletal: Denies none Integumentary Denies rash or wounds Neurologic Neurologic: Denies weakness EXAM Physical Exam Const Vital Signs: 03/01/25 11:35 03/01/25 13:34 Temperature 98.4 F Temperature Source Oral Pulse Rate 78 82 Respiratory Rate 16 16 Blood Pressure 161/131 H Blood Pressure Mean 141 Pulse Ox 96 Oxygen Delivery Method Room Air Room Air Positive well nourished and well developed General Appearance ED: well developed and NAD HEENT Reports moist mucous membranes normocephalic and atraumatic Eyes General Eye ED: Yes normal appearance of both eyes Neck full ROM Chest Wall Chest: Negative for tenderness Resp normal respiratory effort and normal air movement Effort and Inspection: symmetric chest movement; Negative for respiratory distress Cardio regular rate, regular rhythm and no murmurs Peripheral Pulses: pulses 2+ throughout GI normal to inspection, nondistended, normoactive bowel sounds and non-tender GI Narrative: Negative Eldridge's or McBurney's tenderness. Palpation: Negative for guarding or rebound tenderness present Extremity normal to inspection General Extremety ED: Negative for edema or tenderness General Extremity: Negative for edema Neuro oriented x3 and no sensory deficits noted Sensorium / Orientation: awake and alert Skin no rashes or lesions noted and no wounds MDM MDM MDM Narrative Medical decision making narrative: Interventions / MDM: Differential diagnosis: Biliary colic, gallstones, gallbladder polyp Diagnosis considered but do not suspect: Pancreatitis however lipase normal. No clinical cholecystitis. My EKG interpretation: N/A Imaging independently reviewed and interpreted by myself: Right upper quadrant ultrasound: 1.1 cm gallstone, gallbladder polyp with 0.4 cm. No pericholecystic fluid. External documents reviewed: N/A Test considered but not ordered:N/A ED course: Patient symptoms resolved during my examination. Nursing protocol was initiated prior to my evaluation. Labs returned white count normal at 10.9 lipase normal. Slight elevated liver enzymes AST 54 and ALT of 54. Total bili was 0.86. However with history potential biliary colic with eating oily foods twice. I will obtain a right upper quadrant ultrasound for further evaluation. 1520: Patient remains asymptomatic gallstones with gallbladder polyp on ultrasound. Discussed bland diet avoiding dairy foods, greasy foods, fatty foods. I spoke with surgeon Dr. Mancini, who will follow-up with him in the office. Patient understands agrees with plan. All questions were answered. Re-evaluation: stable Disposition discussed with patient/family/sign ificant other: Patient and significant other Case discussed with consulting clinician: General Surgery This note was generated with i[employer] dictation software. It may contain incorrect words, spelling, and punctuation that were not noted in checking the note before signing. Lab Data Attestation: I reviewed the patient's lab results. Labs: Laboratory Results - last 24 hr 03/01/25 (more content not included)... Normal [facility] Eosinophil percentageOrdered By: ED PROVIDER on 03-01-2025 Eosinophils/100 WBC (Bld) 1.6 % 0-5 [facility] Erythrocyte distribution wid th ratioOrdered By: ED PROVIDER on 03-01-2025 Erythrocyte distribution width (RBC) [Ratio] 12.0 % 11.6-14.6 [facility] Erythrocyte distribution wid th standard deviationOrdered By: ED PROVIDER on 03-01-2025 Erythrocyte distribution width (RBC) [Ratio] 37.1 fl 35.1-43.9 [facility] Gallbladderon 03-01-2025 Gallbladder [facility] Imaging Services [address] [place], [place] [address] Gallbladder MR#: [id number] Acct: [id number] Name: JESSY TEJEDA Rep #: [id number] : 1990 M 34 From: John Jennings MD PCP: Dr. Eitan Michael MD Status: REG ER Study: Gallbladder Date of Exam: 03/01/25 Exam# [id number] Ordering Dr: Loy Jennings DO EXAM: US Abdomen Limited, Gallbladder CLINICAL INDICATION: PAIN TECHNIQUE: Real-time ultrasound of the right upper quadrant with image documentation. COMPARISON: No relevant prior studies available. FINDINGS: LIVER: Liver measures up to 6.3 cm. Fatty infiltration of the liver. 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 Gallbladder calculus measuring up to 1.1 cm. Gallbladder polyp measuring up to 0.4 cm. COMMON BILE DUCT: Unremarkable as visualized. No stones. No dilation. PANCREAS: Unremarkable as visualized. RIGHT KIDNEY: Unremarkable. No stones. No hydronephrosis. The right kidney measures 10.0 x 5.2 x 4.6 cm. US/Gallbladder IMPRESSION: 1. Fatty infiltration of the liver. 2. Cholelithiasis and gallbladder polyp. Reading Location: [facility] CC: Dr. Eitan Michael MD; Dr. Loy Jennings DO Professor Of Religion: Signed Normal [facility] Glomerular filtration rate ( GFR) estimation/1.73 sq m using serum, plasma, or whole bOrdered By: ED PROVIDER on 03-01-2025 GFR/1.73 sq M.predicted among non-blacks MDRD (S/P/Bld) [Vol rate/Area] 100 mL/min/{1.73_m2} >60 [facility] Comment on above: mL/min/1.73m2 CKD-EP I Creatinine Equation (2020) Hematocrit Auto (Bld) [Volum e fraction]Ordered By: ED PROVIDER on 03-01-2025 Hematocrit (Bld) [Volume fraction] 45.7 % 40-54 [facility] Hemoglobin measurementOrdere d By: ED PROVIDER on 03-01-2025 Hemoglobin (Bld) [Mass/Vol] 15.3 g/dL 13.0-16.5 [facility] Immature granulocytes/100 WB C Auto (Bld)Ordered By: ED PROVIDER on 03-01-2025 Immature granulocytes/100 WBC (Bld) 0.200 % 0.0-0.9 [facility] Comment on above: IG% - Immature Granu locytes (promyelocytes, myelocytes and metamyelocytes) > 1% indicates that a LEFT SHIFT is Present. Laboratory - Chemistry and C hemistry - challengeOrdered By: ED PROVIDER on 03-01-2025 AST [Catalytic activity/Vol] 54 U/L High <38 [facility] Lipaseon 03-01-2025 Lipase [Catalytic activity/Vol] 36 U/L Normal 13-75 [facility] Comment on above: Result Comment: Kristian mtz note: LIPASE revised reference range effective 22. New Lipase methodology. Expected to produce lower values than the previous assay method. NEW Reference Range: 13 - 75 U/L Performed By: #### L 500.4050, L501.2450, L100.0100 #### [facility] [address] [place], [address] Lipase measurementOrdered By : ED PROVIDER on 03-01-2025 Lipase [Catalytic activity/Vol] 36 U/L 13-75 [facility] Comment on above: Please note:LIPASE r evised reference range effective 22. New Lipase methodology. Expected to produce lower values than the previous assay method. NEW Reference Range: 13 - 75 U/L MCV (mean corpuscular volume ) determinationOrdered By: ED PROVIDER on 03-01-2025 MCV (RBC) [Entitic vol] 84.9 fL 80-94 [facility] Mean corpuscular hemoglobin (MCH) determinationOrdered By: ED PROVIDER on 03-01-2025 MCH (RBC) [Entitic mass] 28.4 pg 27.0-32.0 [facility] Mean corpuscular hemoglobin concentration (MCHC) determinationOrdered By: ED PROVIDER on 03-01-2025 MCHC (RBC) [Mass/Vol] 33.5 g/dL 32-36 [facility] Mean platelet volume determi nationOrdered By: ED PROVIDER on 03-01-2025 Platelet mean volume (Bld) [Entitic vol] 9.2 fL 6.2-12.0 [facility] Monocyte percentageOrdered B y: ED PROVIDER on 03-01-2025 Monocytes/100 WBC (Bld) 9.0 % 0-10 [facility] Neutrophil percentageOrdered By: ED PROVIDER on 03-01-2025 Neutrophils/100 WBC (Bld) 40.1 % Low 47-70 [facility] Nucleated red blood cell per centageOrdered By: ED PROVIDER on 03-01-2025 Nucleated RBC/100 WBC (Bld) [Ratio] 0 % 0-5 [facility] Platelet countOrdered By: ED PROVIDER on 03-01-2025 Platelets (Bld) [#/Vol] 474 10*3/uL High 150-450 [facility] Potassium measurement (mass/ volume)Ordered By: ED PROVIDER on 03-01-2025 Potassium (Unsp spec) [Mass/Vol] 3.3 mmol/L 3.3-5.1 [facility] RBC Auto (Bld) [#/Vol]Ordere d By: ED PROVIDER on 03-01-2025 RBC (Bld) [#/Vol] 5.38 10*6/uL 4.6-6.2 [facility] Serum creatinine measurement (mass/volume)Ordered By: ED PROVIDER on 03-01-2025 Creatinine [Mass/Vol] 1.00 mg/dL 0.70-1.20 [facility] Serum globulin measurementOr dered By: ED PROVIDER on 03-01-2025 Globulin (S) [Mass/Vol] 2.9 g/dL 2.2-4.2 [facility] Serum glucose measurement (m ass/volume)Ordered By: ED PROVIDER on 03-01-2025 Glucose [Mass/Vol] 125 mg/dL High 70-99 [facility] Serum or plasma alanine rome otransferase (ALT) measurementOrdered By: ED PROVIDER on 03-01-2025 ALT [Catalytic activity/Vol] 54 U/L High <47 [facility] Serum or plasma albumin george urement (mass/volume)Ordered By: ED PROVIDER on 03-01-2025 Albumin [Mass/Vol] 4.9 g/dL 3.5-5.0 [facility] Serum or plasma albumin/glob ulin mass ratioOrdered By: ED PROVIDER on 03-01-2025 Albumin/Globulin [Mass ratio] 1.7 {ratio} 0.9-2.4 [facility] Serum or plasma alkaline brandin sphatase measurementOrdered By: ED PROVIDER on 03-01-2025 ALP [Catalytic activity/Vol] 43 U/L 40-129 [facility] Serum or plasma calcium george urement (mass/volume)Ordered By: ED PROVIDER on 03-01-2025 Calcium [Mass/Vol] 9.7 mg/dL 7.6-11.0 [facility] Serum or plasma urea nitroge n measurement (mass/volume)Ordered By: ED PROVIDER on 03-01-2025 Urea nitrogen [Mass/Vol] 13 mg/dL 4-19 [facility] Sodium levelOrdered By: CLAUDIA ESTRELLA on 03-01-2025 Sodium [Moles/Vol] 140 mmol/L 133-145 [facility] Total proteinOrdered By: ED PROVIDER on 03-01-2025 Protein [Mass/Vol] 7.8 g/dL 5.9-8.4 [facility] White blood cell (WBC) count Ordered By: ED PROVIDER on 03-01-2025 WBC (Bld) [#/Vol] 10.9 10*3/uL 4.4-11.0 [facility] No Panel Informationon 02-09 SKIN TEST INTRADERMAL TB Negative Normal [facility], [facility]. Vital Signs Date Time Vital Sign Value Performing Clinician Facility 04-06-2025 15:02-0400 Body height 180.[address] Loy Iverson Work Phone: 4(404)[phone] [place] [address] 04-06-2025 15:02-0400 Diastolic blood pressure 75 mm[Hg] Dr. Loy Iverson Work Phone: 5(993)504-724059 [place] [address] 04-06-2025 15:02-0400 Heart rate 75 /min Dr. Loy Iverson Work Phone: 2(999)859-985859 [place] [address] 04-06-2025 15:02-0400 Respiratory rate 17 /min Dr. Loy Iverson Work Phone: 4(484)996-156559 [place] [address] 04-06-2025 15:02-0400 SaO2% (BldA) [Mass fraction] 100 % Dr. Loy Iverson Work Phone: 5(948)495-978359 [place] [address] 04-06-2025 15:02-0400 Systolic blood pressure 142 mm[Hg] Dr. Loy Iverson Work Phone: 0(883)221-649059 [place] [address] 03-10-2025 13:14-0400 Body height 180.[address] Loy Iverson Work Phone: 1(194)658-212759 [place] [address] 03-10-2025 13:14-0400 Body mass index (BMI) [Ratio] 29.9 kg/m2 Dr. Loy Iverson Work Phone: 6(484)704-784859 [place] [address] 03-10-2025 13:14-0400 Body temperature 97.2 [degF] Dr. Loy Iverson Work Phone: 6(964)[phone] [place] [address] 03-10-2025 13:14-0400 Body weight 97.[address] Loy Iverson Work Phone: 8(030)724-638759 [place] [address] 03-10-2025 13:14-0400 Diastolic blood pressure 89 mm[Hg] Dr. Loy Iverson Work Phone: 6(754)750-287659 [place] [address] 03-10-2025 13:14-0400 Heart rate 72 /min Dr. Loy Iverson Work Phone: 6(609)082-573459 [place] [address] 03-10-2025 13:14-0400 Respiratory rate 18 /min Dr. Loy Iverson Work Phone: 6(093)826-906859 [place] [address] 03-10-2025 13:14-0400 SaO2% (BldA) [Mass fraction] 99 % Dr. Loy Iverson Work Phone: 5(233)483-668459 [place] [address] 03-10-2025 13:14-0400 Systolic blood pressure 128 mm[Hg] Dr. Loy Iverson Work Phone: 1(391)696-065759 [place] [address] 03-01-2025 15:42-0400 Body temperature 98.2 [degF] Dr. Loy Iverson Work Phone: 4(956)116-405359 [place] [address] 03-01-2025 15:42-0400 Diastolic blood pressure 70 mm[Hg] Dr. Loy Iverson Work Phone: 2(086)906-966459 [place] [address] 03-01-2025 15:42-0400 Heart rate 66 /min Dr. Loy Iverson Work Phone: 0(239)725-922659 [place] [address] 03-01-2025 15:42-0400 Respiratory rate 12 /min Dr. Loy Iverson Work Phone: 8(486)825-442159 [place] [address] 03-01-2025 15:42-0400 SaO2% (BldA) [Mass fraction] 100 % Dr. Loy Iverson Work Phone: 4(309)026-037859 [place] [address] 03-01-2025 15:42-0400 Systolic blood pressure 120 mm[Hg] Dr. Loy Le DO Work Phone: [facility] 03-01-2025 12:00-0400 Body mass index (BMI) [Ratio] 30.4 kg/m2 Dr. Loy Jennings DO Work Phone: [facility] 03-01-2025 12:00-0400 Body weight 99.[address] Loy Jennings DO Work Phone: [facility] 03-01-2025 11:35-0400 Body height 180.[address] Loy Jennings DO Work Phone: [facility] 12-10-2017 15:12-0400 Body height 180.34 cm Phyllis Laura LPN [facility] [employer] 12-10-2017 15:12-0400 Body mass index (BMI) [Ratio] 29.71 kg/m2 Phyllis Laura LPN [facility] [employer] 12-10-2017 15:12-0400 Body surface area Derived from formula 2.17 m2 Phyllis Laura LPN [facility] [employer] 12-10-2017 15:12-0400 Body weight 96.62 kg Phyllis Laura LPN [facility] [employer] 12-10-2017 15:12-0400 Diastolic blood pressure 87 mm[Hg] Phyllis Laura LPN [facility] [employer] Comment on above: Patient Position: Sitting; Cuff Location : Left Arm; Cuff Size: Standard 12-10-2017 15:12-0400 Heart rate 84 /min Phyllis Laura LPN [place] [facility] [employer] Comment on above: Pattern: Regular 12-10-2017 15:12-0400 Systolic blood pressure 150 mm[Hg] Phyllis Laura LPN [place] [facility] [employer] Comment on above: Patient Position: Sitting; Cuff Location : Left Arm; Cuff Size: Standard 03-01-2014 16:20-0400 Body height 179.07 cm Eitan Michael MD Work Phone: [email or web address] 03-01-2014 16:20-0400 Body mass index (BMI) [Ratio] 27.44 kg/m2 Eitan Michael MD Work Phone: [email or web address] 03-01-2014 16:20-0400 Body surface area Derived from formula 2.07 m2 Eitan Michael MD Work Phone: [email or web address] 03-01-2014 16:20-0400 Body weight 88 kg Eitan Michael MD Work Phone: [email or web address] 03-01-2014 16:20-0400 Diastolic blood pressure 75 mm[Hg] Eitan Michael MD Work Phone: [email or web address] Comment on above: Patient Position: Sitting; Cuff Location : Right Arm; Cuff Size: Standard 03-01-2014 16:20-0400 Heart rate 63 /min Eitan Michael MD Work Phone: [employer] Comment on above: Pattern: Regular 03-01-2014 16:20-0400 Systolic blood pressure 148 mm[Hg] Eitan Michael MD Work Phone: [email or web address] Comment on above: Patient Position: Sitting; Cuff Location : Right Arm; Cuff Size: Standard 02-09-2014 14:06-0400 Body height 179.07 cm Julieta Fuentes LPN [employer]. 02-09-2014 14:06-0400 Body mass index (BMI) [Ratio] 27.3 kg/m2 Julieta Fuentes LPN [employer] 02-09-2014 14:06-0400 Body surface area Derived from formula 2.07 m2 Julieta Fuentes LPN [employer], [employer]. 02-09-2014 14:06-0400 Body weight 87.54 kg Lynsey [place] [facility], [employer], [employer]. 02-09-2014 14:06-0400 Diastolic blood pressure 66 mm[Hg] Julieta Fuentes [facility], [employer], [employer]. Comment on above: Patient Position: Sitting; Cuff Location : Left Arm; Cuff Size: Large 02-09-2014 14:06-0400 Heart rate 94 /min Julieta Fuentes [facility], [employer], [employer]. Comment on above: Pattern: Regular 02-09-2014 14:06-0400 Systolic blood pressure 120 mm[Hg] [facility], [employer]. Comment on above: Patient Position: Sitting; Cuff Location : Left Arm; Cuff Size: Large Encounters Encounter Date Encounter Type Care Provider Facility Start: 04-08-[address] [facility] Facility:[facility] Start: 04-06-2025 End: 04-06-[address] Angie Mancini MD -[facility] Work Phone: Start: 04-06-2025 End: 04-06-[address] [facility] Facility:[facility] Start: 04-05-2025 Patient encounter procedure Freda Soto PA-C -Laboratory Work Phone: Start: 04-05-2025 ambulatory Freda Pinon lit:[facility] Start: 03-10-2025 End: 03-10-[address] Angie Mancini MD -[facility] Work Phone: Start: 03-10-2025 End: 03-10-[address] Loy Iverson Work Phone: -[facility] Start: 03-10-2025 End: 03-10-[address] [facility] Facility:[facility] Start: 03-01-2025 End: 03-01-2025 Emergency department patient visit Dr. Loy Iverson Work Phone: -Emergency Department Work Phone: Start: 12-10-2017 End: 12-10-2017 Office outpatient visit 15 minutes Eitan Michael MD Work Phone: [employer] Start: 03-01-2014 End: 03-01-2014 Patient encounter procedure Eitan Michael MD Work Phone: [employer] Start: 02-09-2014 End: 02-09-2014 Nursing evaluation of patient and report Eitan Michael MD Work Phone: [employer] Start: 02-09-2014 End: 02-09-2014 Patient encounter procedure Eitan Michael MD Work Phone: [employer] Procedures Date Procedure Procedure Detail Performing Clinician Start: 03-01-2025 US scan of gallbladder Dr. Loy Iverson Work Phone: Start: 03-01-[address] Loy Iverson Work Phone: Start: 12-10-2017 End: 12-10-2017 Body mass index documented Eitan Michael MD Work Phone: Plan of Treatment Date Care Activity Detail Author Start: 03-10-2025 Hepatic function panel [facility] Start: 03-01-2025 [facility] Alanine aminotransfe rase [Enzymatic activity/volume] in Serum or Plasma [facility] Albumin [Mass/volume ] in Serum or Plasma [facility] Alkaline phosphatase [Enzymatic activity/volume] in Serum or Plasma [facility] Bilirubin, total measurement [facility] Bilirubin.direct [Mass/volume] in Serum or Plasma [facility] Patient Education ED Gallstones with Biliary Colic [facility] Work Phone: Total protein measurement [facility] Immunizations Immunization Date Immunization Notes Care Provider Fa cility 02-09-2014 meningococcal polysaccharide (groups A, C, Y and W-135) diphtheria toxoid conjugate vaccine (MCV4P) Eitan Michael MD Work Phone: [employer]; [employer] Comment on above: Site: Deltoid (Left) 02-09-2014 Meningococcal, MCV4, unspecified conjugate formulation(groups A, C, Y and W-135) Eitan Michael MD Work Phone: [facility] 12-15-2010 hepatitis A vaccine, adult dosage Eitan Michael MD Work Phone: [facility].; [facility] 07-09-2010 typhoid capsular polysaccharide vaccine Eitan Michael MD Work Phone: [facility].; [facility] 06-28-2010 measles, mumps and rubella virus vaccine Etian Michael MD Work Phone: [facility].; [facility] 05-25-2010 hepatitis A vaccine, adult dosage Eitan Michael MD Work Phone: [facility].; [facility] 05-25-2010 tetanus toxoid, redu mikal diphtheria toxoid, and acellular pertussis vaccine, adsorbed Eitan Michael MD Work Phone: [facility]; [facility] 03-25-1995 diphtheria, tetanus toxoids and acellular pertussis vaccine Eitan Michael MD Work Phone: [facility]; [facility] 03-25-1995 poliovirus vaccine, inactivated Eitan Michael MD Work Phone: [facility].; [facility] 05-08-1990 diphtheria, tetanus toxoids and acellular pertussis vaccine Eitan Michael MD Work Phone: [facility].; [facility] 05-08-1990 poliovirus vaccine, inactivated Eitan Michael MD Work Phone: [facility].; [facility] 02-08-1990 haemophilus influenz ae type b vaccine, PRP-T conjugate Eitan Michael MD Work Phone: [facility].; [facility] 02-08-1990 measles, mumps and rubella virus vaccine Eitan Michael MD Work Phone: [facility] 06-27-1989 diphtheria, tetanus toxoids and acellular pertussis vaccine Eitan Michael MD Work Phone: [facility].; [facility], [facility]. 04-06-1989 diphtheria, tetanus toxoids and acellular pertussis vaccine Eitan Michael MD Work Phone: [facility].; [facility]. 04-06-1989 poliovirus vaccine, inactivated Eitan Michael MD Work Phone: [facility], [facility]. 1988 diphtheria, tetanus toxoids and acellular pertussis vaccine Eitan Michael MD Work Phone: [facility].; [facility], [facility]. 1988 poliovirus vaccine, inactivated Eitan Michael MD Work Phone: [facility].; [email or web address] Payers Date Payer Category Payer Self-pay Unknown [id number] [id number] Unknown [id number] Unknown [id number] Unknown [id number] Unknown [id number] Unknown [id number] Social History Date Type Detail Facility Start: 03-01-2025 End: 03-10-2025 Tobacco smoking status MNIS Never smoked tobacco (finding) [facility] Start: 1990 Sex Assigned At Male [facility] Caffeine Use Caffeine Use [facility].; [email or web address] Tobacco smoking consumption unknown [place] [facility] Work Phone: Progress note 04-06-2025 Note Date & Type Note Facility 04-06-2025 Progress note [facility] Progress note 04-06-2025 Note Date & Type Note Facility 04-06-2025 Progress note Note Date/Time April 06, 2025 3:13pm [facility] [address] [place] [address] OFFICE VISIT Date of Service: 04/06/25 MR#: [id number] Acct: [id number] Name: JESSY TEJEDA Rep #: [id number] : 1990 Provider: Dr. Arie Mancini MD Age/Sex: 34/M Location: [facility] Status: Signed Intake Vital Signs 03/10/25 13:14 04/06/25 15:02 Height 5 ft 11 in 5 ft 11 in Weight: 215 lb BMI 29.9 BP 128/89 H 142/75 H Blood Pressure Location Rt brachial Rt brachial Position Sitting Sitting Respiration 18 17 Pulse 72 75 Pulse Source Monitor Monitor Temp 97.2 F L Temp Source Temporal Pulse Oximetry (%) 99 100 Oxygen Delivery Method room air room air Intake Visit Reasons: MED CHECK Chief Complaint: med check/gallbladder Is patient in pain?: Yes (occasional twinges/aches right side.) Allergies No Known Allergies Allergy (Verified 04/06/25 15:03) Medications ?Medication ?Instructions ?Recorded ?Confirmed ?Type omeprazole 40 mg capsule,delayed 40 mg PO QDAY #30 cap s 03/10/25 04/06/25 [facility] History Cholelithiases Social History (Updated 03/10/25 @ 13:14 by Jacy De Leon LPN) Smoking Status: Never smoker alcohol intake: never substance use type: does not use HPI HPI HPI: 34-year-old male presents for follow-up for right upper quadrant pain, epigastric pain, cholelithiasis, elevated liver functions. Patient's liver functions are normal on recheck before this appointment. Patient states he doesoccasionally get some right upper quadrant discomfort depending on what he eats but his sour stomach has improved with the omeprazole. ROS General General: No weight change, appetite, fatigue, colon cancer, breast cancer or weakness HEENT HEENT: No difficulty swallowing, eye injury, eye surgery, swollen glands or hoarseness Endo Endocrine: No thyroid disease, diabetes mellitus, thyroid cancer, Hair loss, heat intolerance or cold intolerance Skin Skin: No rash or changing moles Musc Musculoskeletal: No back problems, arthritis, rheumatoid arthritis, gout or joint pain Cardio Cardiovascular: Yes murmur; No pacemaker, heart disease, atrial fibrillation, high blood pressure, heart attack, heart stent, palpitations, shortness of breath with exertion or chest pain Psych Psychiatric: No depression, anxiety or hearing voices Resp Respiratory: No shortness of breath, No sleep apnea, No cough, No COPD, No asthma, No emphysema and No wheezing Gastro Gastrointestinal: Yes abdominal pain, No nausea or vomiting, No diarrhea, No constipation, No blood in stool, No acid reflux, No hemorrhoids, No ulcers, Yes gallbladder problem and No black,tarry stools [place] Hematologic: No blood thinners, No blood disorders, No bleeding, No anemia and No blood clots Neuro Neurologic: No numbness, No tingling and No weakness Exam Const General: cooperative, healthy appearing, comfortable and no acute distress HENMT Head: normocephalic and atraumatic Neck Neck: supple Resp Effort & Inspection: normal respiratory effort Cardio Rate: regular rate GI Inspection: non-distended Skin General: no rashes or lesions noted Neuro General: CN's II-XI intact bilaterally Extrem General: normal to inspection Psych Mental Status: mental status grossly normal Attitude: cooperative Assessment and Plan Assessment and Plan (1) Cholelithiases: Status: Acute (2) Elevated liver function tests: Status: Acute Comment: Resolved (3) Epigastric pain: Status: Acute (4) RUQ pain: Status: Acute Orders: Orders Liver Profile 04/05/25 R10.11 - Right upper quadrant pain Plan Let patient stay on the omeprazole 40 mg p.o. daily Reviewed the anatomy with the patient and discussed the procedure: Robotic/laparoscopic cholecystectomy with possible cholangiograms, possible open. Review risks including but not limited to bleeding, infection, hernia, bile leak, retained gallstones requiring another procedure ERCP- Endoscopic Retrograde Cholangiopancreatography, injury to another organ (bile ducts, commonbile duct, small bowel, etc.) and conversion to an open procedure. All questionswere answered. Angie Mancini M.D. Pager: [phone] [facility] [address] [place] [address], Outpatient Pavilion, [address] [place] [address] Office: [phone] Coding Level of Care Code Off vis,est,level 3 Diagnoses Cholelithiases K80.20 Elevated liver function tests R79.89 Epigastric pain R10.13 RUQ pain R10.11 04/06/25 1513 <Electronically signed by Angie Patel am, MD> Date _ Angie Mancini MD Cosigner Signature: Date (if applicable) CC: Dr. Eitan Michael MD ~ [facility] Work Phone: Evaluation note 03-10-2025 Note Date & Type Note Facility 03-10-2025 Evaluation note Diagnosis Onset Date Resolution Cholelithiases acute March 10, 2025 1:05pm Elevated liver function tests acute March 10, 2025 1:05pm Epigastric pain acute February 1:05pm RUQ pain acute March 10 1:05pm [facility] Work Phone: Evaluation note 03-10-2025 Note Date & Type Note Facility 03-10-2025 Evaluation note Diagnosis Onset Date Resolution Cholelithiases acute March 10, 2025 1:05pm Elevated liver function tests acute March 10, 2025 1:05pm Epigastric pain acute February 1:05pm RUQ pain acute March 10 1:05pm Cholelithiases acute March 2:58pm Elevated liver function tests acute April 06 2:58pm Epigastric pain acute April 062024 2:58pm RUQ pain acute April 06, 2 025 2:58pm [facility] Work Phone: Discharge summary 03-01-2025 Note Date & Type Note Facility 03-01-2025 Discharge summary [facility] Radiology Diagnostic study note 03-01-2025 Note Date & Type Note Facility 03-01-2025 Radiology Diagnostic study note [facility] Imaging Services [address] [place] [address] Gallbladder MR#: [id number] Acct: [id number] Name: JESSY TEJEDA Rep #: [id number] : 1990 M 34 From: Sarahi Jennings MD PCP: Dr. Eitan Michael MD Status: REG ER Study:Gallbladder Date of Exam: 03/01/25 Exam# [id number] Ordering Dr: Loy Jennings DO EXAM: US Abdomen Limited, Gallbladder CLINICAL INDICATION: PAIN TECHNIQUE: Real-time ultrasound of the right upper quadrant with image documentation. COMPARISON: No relevant prior studies available. FINDINGS: LIVER: Liver measures up to 6.3 cm. Fatty infiltration of the liver. 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 Gallbladder calculus measuring up to 1.1 cm. Gallbladder polyp measuring up to 0.4 cm. COMMON BILE DUCT: Unremarkable as visualized. No stones. No dilation. PANCREAS: Unremarkable as visualized. RIGHT KIDNEY: Unremarkable. No stones. No hydronephrosis. The right kidney measures 10.0 x 5.2 x 4.6 cm. US/Gallbladder IMPRESSION: 1. Fatty infiltration of the liver. 2. Cholelithiasis and gallbladder polyp. Reading Location: [facility] CC: Dr. Eitan Michael MD; Dr. Loy Jennings DO ~ Professor Of Religion: Signed [facility] Discharge summary 03-01-2025 Note Date & Type Note Facility 03-01-2025 Discharge summary Note Date/Time March 01, 2025 3:25pm [facility] Medical Records Department [address] [place] [address] Emergency Department Summary 03/01/25 MR#: [id number] Acct: [id number] Name: JESSY TEJEDA Rep #:[id number] : 1990 34 From: Loy Iverson PCP: Dr. Eitan Michael MD Status:REG ER Location: ED HPI HPI - GI History of Present Illness Chief Complaint: Abd Pain Informant: patient and spouse/S.O. Narrative Narrative: Presents here send other significant mid abdominal pain while at work. Started at 9 AM. He had to leave work he states he felt like his stomach going to burst. Ports symptoms started after eating peanut butter. Early for breakfast had a banana and oatmeal. Denies nausea or vomiting. On arrival to the ED symptoms resolved. A week ago had similar symptoms today to eat a large meal for dinner had sloppy Gómez. Symptoms woke him at 3 AM which was transient. Prior to that no issues of similar. No fever chills or sweats. No abdominal surgeries in the past. No urinary symptoms. Prior similar symptoms: Yes PFSH PFSH Home Medications ?Medication ?Instructions ?Recorded ?Last Taken ?Type NK 03/01/25 Unknown History Allergy/AdvReac Type Severity Reaction Status Date / Time No Known Allergies Allergy Verified 03/01/25 11:39 Social History Smoking Status: Never smoker ROS ROS ED Constitutional Constitutional ED: Denies fever(s) Cardiovascular Cardiovascular: Denies chest pain Respiratory/Chest Respiratory/Chest: Denies cough Gastrointestinal Gastrointestinal: Reports abdominal pain; Denies diarrhea or vomiting Genitourinary Genitourinary ED: Denies dysuria Musculoskeletal Musculoskeletal: Denies none Integumentary Denies rash or wounds Neurologic Neurologic: Denies weakness EXAM Physical Exam Const Vital Signs: 03/01/25 11:35 03/01/25 13:34 Temperature 98.4 F Temperature Source Oral Pulse Rate 78 82 Respiratory Rate 16 16 Blood Pressure 161/131 H Blood Pressure Mean 141 Pulse Ox 96 Oxygen Delivery Method Room Air Room Air Positive well nourished and well developed General Appearance ED: well developed and NAD HEENT Reports moist mucous membranes normocephalic and atraumatic Eyes General Eye ED: Yes normal appearance of both eyes Neck full ROM Chest Wall Chest: Negative for tenderness Resp normal respiratory effort and normal air movement Effort and Inspection: symmetric chest movement; Negative for respiratory distress Cardio regular rate, regular rhythm and no murmurs Peripheral Pulses: pulses 2+ throughout GI normal to inspection, nondistended, normoactive bowel sounds and non-tender GI Narrative: Negative Eldridge's or McBurney's tenderness. Palpation: Negative for guarding or rebound tenderness present Extremity normal to inspection General Extremety ED: Negative for edema or tenderness General Extremity: Negative for edema Neuro oriented x3 and no sensory deficits noted Sensorium / Orientation: awake and alert Skin no rashes or lesions noted and no wounds MDM MDM MDM Narrative Medical decision making narrative: Interventions / MDM: Differential diagnosis: Biliary colic, gallstones, gallbladder polyp Diagnosis considered but do not suspect: Pancreatitis however lipase normal. Noclinical cholecystitis. My EKG interpretation: N/A Imaging independently reviewed and interpreted by myself: Right upper quadrant ultrasound: 1.1 cm gallstone, gallbladder polyp with 0.4 cm. No pericholecysticfluid. External documents reviewed: N/A Test considered but not ordered:N/A ED course: Patient symptoms resolved during my examination. Nursing protocol was initiated prior to my evaluation. Labs returned white count normal at 10.9 lipase normal. Slight elevated liver enzymes AST 54 and ALT of 54. Total bili was 0.86. However with history potential biliary colic with eating oily foods twice. I will obtain a right upper quadrant ultrasound for further evaluation. 1520: Patient remains asymptomatic gallstones with gallbladder polyp on ultrasound. Discussed bland diet avoiding dairy foods, greasy foods, fatty foods. I spoke with surgeon Dr. Mancini, who will follow-up with him in the office. Patient understands agrees with plan. All questions were answered. Re-evaluation: stable Disposition discussed with patient/family/significant other: Patient and significant other Case discussed with consulting clinician: General Surgery This note was generated with [employer]ices dictation software. It may contain incorrectwords, spelling, and punctuation that were not noted in checking the note beforesigning. Lab Data Attestation: I reviewed the patient's lab results. Labs: Laboratory Results - last 24 hr 03/01/25 11:15 WBC 10.9 RBC 5.38 Hgb 15.3 Hct 45.7 MCV 84.9 MCH 28.4 MCHC 33.5 RDW Std Deviation 37.1 RDW Coeff of Vilma 12.0 Plt Count 474 H MPV 9.2 Immature Gran % (Auto) 0.200 Neut % (Auto) 40.1 L Lymph % (Auto) 48.4 H Rapides % (Auto) 9.0 Eos % (Auto) 1.6 Baso % (Auto) 0.7 Absolute Neuts (auto) 4.4 Absolute Lymphs (auto) 5.28 H Nucleated RBC % 0 Sodium 140 Potassium 3.3 Chloride 100 Carbon Dioxide 24.0 Anion Gap 16 H BUN 13 Creatinine 1.00 Estim Creat Clear Calc 122.52 Est GFR (MDRD) Non-Af 100 BUN/Creatinine Ratio 13.4 Glucose 125 H Calcium 9.7 Total Bilirubin 0.86 AST 54 H ALT 54 H Alkaline Phosphatase 43 Total Protein 7.8 Albumin 4.9 Globulin 2.9 Albumin/Globulin Ratio 1.7 Lipase 36 Radiography Diagnostic Testing: Clinical Impression(s) from Imaging Studies Gallbladder Ultrasound 03/01/25 12:52 IMPRESSION: 1. Fatty infiltration of the liver. 2. Cholelithiasis and gallbladder polyp. Reading Location: [facility] Discharge Plan Triage Chief Complaint: Abd Pain ED Provider: Loy Jennings Dx/Rx/DC Orders Clinical Impression: Biliary colic, Gallstone, Gallbladder polyp Instructions: ED Gallstones with Biliary Colic Prescriptions: No Action NK Primary Care Provider: Eitan Michael Referrals: Eitan Michael MD [Primary Care Provider] - Angie Mancini MD [Med Staff - Active Staff] - 1-2 Weeks Activity Restrictions/Additional Instructions: Gallstones with gallbladder polyp. Avoid dairy foods, greasy foods, fatty foods. Donley diet. Follow-up with Dr. Mancini. If symptoms return or worsens, return to the ED for reevaluation. Print Language: Paraguayan Disposition Disposition: Home, Self Care What to do if you have Problems For any increased pain, shortness of breath, bleeding, nausea or vomiting, chestpain, or any unexpected problems, contact your Primary Care Provider. Call [facility] ([phone]) or report to the closest Emergency Room. Call 911 if necessary. 03/01/25 1525 <Electronically signed by Loy Iverson> Cosigner Signature (if applicable): CC: Dr. Eitan Michael MD; Dr. Angie Mancini MD ~ Signed [facility] Work Phone: Evaluation note Note Date & Type Note Facility Evaluation note No assessment information availa ble [facility] Work Phone: Hospital Discharge instructions Note Date & Type Note Facility Hospital Discharge instructions Additional Instructions Gallstones with gallbladder polyp. Avoid dairy foods, greasy foods, fatty foods. Donley diet. Follow-up with Dr. Mancini. If symptoms return or worsens, return to the ED for reevaluation. [facility] Work Phone: Reason for referral (narrative) Note Date & Type Note Facility Reason for referral (narrative) No reason for referral information available [facility] Work Phone: Chief Complaint and Reason for Visit Chief Complaint Admit Date abdominal March 01, 2025 11:3 4am Chief Complaint Admit Date abdominal March 01, 2025 11:3 4am ER F/U- GALLBLADDER - SELF PAY February 1:05pm Reason for Visit Admit Date Cholelithiases March 10, 2025 1:05 pm Elevated liver function tests March 10, 2025 1:05pm Epigastric pain March 10, 2025 1:05 pm RUQ pain March 10, 2025 1:05 pm Chief Complaint Admit Date abdominal March 01, 2025 11:3 4am ER F/U- GALLBLADDER - SELF PAY February 1:05pm INT LAB ORDER April 05, 2025 4: 49pm MED CHECK April 06, 2025 2: 58pm Reason for Visit Admit Date Cholelithiases March 10, 2025 1:05 pm Elevated liver function tests March 10, 2025 1:05pm Epigastric pain March 10, 2025 1:05 pm RUQ pain March 10, 2025 1:05 pm Cholelithiases April 06, 2025 2: 58pm Elevated liver function tests March 2:58pm Epigastric pain April 06, 2025 2: 58pm RUQ pain April 06, 2025 2: 58pm Advance Directives Advance Directive Response Recorded Date/ Time Do you have a Healthcare Power of Pot Puller? No March 01, 2025 12:00pm Family History Hypothyroidism Status:Active Comments:Mother. Hypothyroidism Status:Active Comments:Mother. Hypothyroidism Status:Active Comments:Mother. Hypothyroidism Status:Active Comments:Mother. Hypothyroidism Status:Active Comments:Mother. Summary Purpose Additional Source Comments Care Teams (unrecognized sec tion and content) Team Status: Active Member Role/Relationship Status Dates Dr. Eitan Michael MD Primary Care Provider Active Team Status: Inactive Member Role/Relationship Status Dates Dr. Loy Jennings DO Emergency Provider Active Start : March 01, 2025 End: March 01, 2025 Dr. Eitan Michael MD Primary Care Provider Active Start: March 01, 2025 End: March 01, 2025 Team Status: Inactive Member Role/Relationship Status Dates Dr. Loy Jennings DO Attending Provider Active Start : March 01, 2025 End: March 01, 2025 Dr. Loy Jennings DO Emergency Provider Active Start : March 01, 2025 End: March 01, 2025 Dr. Eitan Michael MD Primary Care Provider Active Start: March 01, 2025 End: March 01, 2025 Team Status: Inactive Member Role/Relationship Status Dates Dr. Eitan Michael MD Primary Care Provider Active Start: March 10, 2025 End: March 10, 2025 Dr. Eitan Michael MD Referring Provider Active S tart: March 10, 2025 End: March 10, 2025 Dr. Angie Mancini MD Attending Provider Active Start: March 10, 2025 End: March 10, 2025 Team Status: Active Member Role/Relationship Status Dates Dr. Eitan Michael MD Primary Care Provider Active Start: March 10, 2025 Dr. Angie Mancini MD Attending Provider Active Start: March 10, 2025 Dr. Angie Mancini MD Referring Provider Active Start: March 10, 2025 Team Status: Inactive Member Role/Relationship Status Dates Dr. Eitan Michael MD Primary Care Provider Active Start: March 10, 2025 End: March 10, 2025 Dr. Angie Mancini MD Attending Provider Active Start: March 10, 2025 End: March 10, 2025 Dr. Angie Mancini MD Referring Provider Active Start: March 10, 2025 End: March 10, 2025 Team Status: Active Member Role/Relationship Status Dates Dr. Eitan Michael MD Primary Care Provider Active Start: April 05, 2025 Freda CALDWELL PA-C Attending Provider Active Start: April 05, 2025 Freda CALDWELL PA-C Referring Provider Active Start: April 05, 2025 Team Status: Inactive Member Role/Relationship Status Dates Dr. Eitan Michael MD Primary Care Provider Active Start: April 06, 2025 End: April 06, 2025 Dr. Eitan Michael MD Referring Provider Active S tart: April 06, 2025 End: April 06, 2025 Dr. Angie Mancini MD Attending Provider Active Start: April 06, 2025 End: April 06, 2025 Goals (unrecognized section and content) Goals may be documented in a n alternate sectionGoals may be documented in an alternate sectionGoals may be documented in an alternate sectionGoals may be documented in an alternate section (unrecognized sect ion and content) No Status Records Found INFORMATION SOURCE (unrecogn ized section and content) DATE CREATED AUTHOR 04/06/2025 [facility] FOR RECORDS PERTAINING TO PATIENTS WHO ARE OR HAVE BEEN ENROLLED IN A CHEMICAL DEPENDENCY/SUBSTANCEABUSE PROGRAM, SOME INFORMATION MAY BE OMITTED. This clinical summary was aggregated from multiple sources. Caution should be exercised in using it in the provision of clinical care. This summary normalizes information from multiple sources, and as a consequence, information in this document may materially change the coding, format and clinical context of patient data. In addition, data may be omitted in some cases. CLINICAL DECISIONS SHOULD BE BASED ON THE PRIMARY CLINICAL RECORDS. [employer] [facility]. provides no warranty or guarantee of the accuracy or completeness of information in this document.
[2025-04-08] MEDS: INDOCYANINE GREEN 3.75 MG in Syringe 1.5 ML 999 MG IV (08:17)
[2025-04-08] MEDS: Lactated Ringers 1,000 ML 15 ML IV ×2 (08:33→11:45)
--- NOTE | 2025-04-08 08:33 | EKG12_ITS ---
Test Reason : P Blood Pressure : */* mmHG Vent. Rate : 66 BPM Atrial Rate : 66 BPM P-R Int : 160 ms QRS Dur : 82 ms QT Int : 372 ms P-R-T Axes : 38 19 39 degrees QTcB Int : 389 ms Normal sinus rhythm with sinus arrhythmia Normal ECG No previous ECGs available Confirmed by Jono Del Rosario ([id number]), index editor JAIDA WATSON ([id number]) on 04/13/2025 11:16:03 AM Referred By: Angie Mancini Confirmed By: Jono Del Rosario
--- NOTE | 2025-04-08 08:46 | PCM.PRE.AN2 ---
ASA Classification* ASA Classification ASA Classification: 2 Assessment & Plan Anesthesia* Anesthesia Assessment Anesthesia Assessment: Discussed sedation and/or anesthesia options, risks, benefits, and alternatives with patient/parents/legal guardian/POA. Questions invited. The patient/parents/legal guardian/POA seems to understand and agrees to proceed with anesthesia plan. Reviewed the physical assessment, medical history, allergy history and patient home medications list prior to surgery/procedure/anesthetic and documented any changes. Performed airway and anesthesia risk assessments. Anesthesia Type Anesthesia Type: General History Source History Obtained from:: Patient and Chart Anesthesia Focused Assessment* Temperature: 97.9 F Pulse Rate: 71 Blood Pressure: 115/72 Respiratory Rate: 16 Pulse Ox: 99 Oxygen Delivery Method: Room Air Airway Assessment Mouth opens: >3 cm Mallampati Score: III Teeth Condition: Intact Neck Range of motion (ROM): Full ROM Labs Anesthesia Preop lab: CBC WBC 10.9 K/mm3 (4.4-11.0) 03/01/25 11:15 03/01/25 RBC 5.38 M/mm3 (4.6-6.2) 03/01/25 11:15 03/01/25 Hgb 15.3 g/dL (13.0-16.5) 03/01/25 11:15 03/01/25 Hct 45.7 % (40-54) 03/01/25 11:15 03/01/25 Plt Count 474 K/mm3 (150-450) H 03/01/25 11:15 03/01/25 CHEMISTRY Potassium 3.3 mmol/L (3.3-5.1) 03/01/25 11:15 03/01/25 Sodium 140 mmol/L (133-145) 03/01/25 11:15 03/01/25 BUN 13 mg/dL (4-19) 03/01/25 11:15 03/01/25 Creatinine 1.00 mg/dL (0.70-1.20) 03/01/25 11:15 03/01/25 Glucose 125 mg/dL (70-99) H 03/01/25 11:15 03/01/25 COAG Pre-Assessment Diagnosis/Proposed Procedure Planned Operative Procedure(s): ROBOTIC CHOLECYSTECTOMY Anesthesia History 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 When Was Last Pacemaker Check QUESTION #4 FULL TEXT: You/Your Family Experience fever (hyperthermia) with Anesthesia Last Oral Intake Last Oral intake: Last Oral Intake NPO since 06:00 04/08/25 08:19 Meds taken in AM with sips of Yes 04/08/25 08:19 water? Meds patient instructed to take am of surgery Any additional information?: Yes NPO since: 06:00 Meds taken in AM with sips of water?: Yes PONV PONV - pharmaceutical worker: PONV - pharmaceutical worker Female No 04/07/25 15:38 HX of Motion Sickness No 04/07/25 15:38 HX of N/V After Surgery No 04/07/25 15:38 Non-Smoker Yes 04/07/25 15:38 Duration of Surgery greater No 04/07/25 15:38 than 60 minutes Number of Risk Factors 1 04/07/25 15:38 PONV Score Low Risk 04/07/25 15:38 Height & Weight Height & Weight: Anesthesia: Height & Weight Height 5 ft 11 in 04/08/25 08:19 Weight: 96.2 kg 04/08/25 08:19 Body Mass Index (BMI) 29.5 04/08/25 08:19 Respiratory Assessment Respiratory Assessment - pharmaceutical worker: Respiratory Tract Infection Hx - pharmaceutical worker Hx Respiratory Tract Infection No 04/07/25 15:38 STOP Sleep Apnea STOP Sleep Apnea - pharmaceutical worker: STOP Sleep Apnea - pharmaceutical worker Hx Hypertension No 04/07/25 15:38 Hx Sleep Apnea No 04/07/25 15:38 CPAP BIPAP Do you snore loudly (louder No 04/07/25 15:38 than talking or can be heard Do you often feel tired/ No 04/07/25 15:38 fatigued/ sleepy during daytime? Has anyone observed you stop No 04/07/25 15:38 breathing during sleep? STOP Results Negative 04/07/25 15:38 QUESTION #5 FULL TEXT : Do you snore loudly (louder than talking or can be heard through closed doors)? 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 Specify any problems Hx of Preganancy in last 3 N/A 04/07/25 15:38 Months Nurse Filling Out Transfusion DSCHRIBER 04/07/25 15:38 & Questions: Date: 04/07/25 04/07/25 15:38 Time: 15:39 04/07/25 15:38 Patient unable to answer at this time (ie. confused, unrespo /Reproduction History /Reproductive History - pharmaceutical worker: /Reproductive Hx- pharmaceutical worker Hx Now No 04/07/25 15:38 Gestational Age (in weeks): EDC: Hx Hx Para Hx Section SAB No 04/07/25 15:38 Active Medications Active Medications: Current Medications Generic Name Dose Route Start Last Admin Trade Name Freq PRN Reason Stop Dose Admin Cefazolin Sodium 2 gm/ Sodium 110 mls @ 200 mls/hr 04/08/25 13:00 Chloride IV 04/08/25 13:32 INTRAOP ONE Indocyanine Green 3.75 mg/ N/A 1.5 mls @ 999 mls/hr 04/08/25 13:00 04/08/25 08:17 IV 04/08/25 13:01 999 mls/hr PREOP ONE Administration Lactated Ringer's 1,000 mls @ 15 mls/hr 04/08/25 08:30 04/08/25 08:33 IV 15 mls/hr .Q48H SUSI Administration PFSH Medical History Gastric reflux Former smoker Heart murmur Cholelithiases Home Medications ?Medication ?Instructions ?Recorded ?Last Taken ?Type omeprazole 40 mg capsule,delayed 40 mg PO QDAY #30 caps 03/10/25 04/08/25 06:00 Rx release Allergy/AdvReac Type Severity Reaction Status Date / Time No Known Allergies Allergy Verified 04/08/25 08:10 Surgical History No history of previous surgery no surgical history Social History Smoking Status: Former smoker alcohol intake: never substance use type: does not use Review of Systems (Anesthesia) ROS Narrative System reviewed and no additional complaints, except as documented.
--- NOTE | 2025-04-08 09:00 | GALL_PTH ---
PATIENT: JESSY TEJEDA LOC: [facility] U#:[id number] AGE/SX: 34/M ROOM: RE04/08/[address]: Dr. Angie Mancini MD : 1990 BED: DIS: 04/08/2025 SPEC #: [id number] RECD: 04/08/25 12:03 STATUS: TRAN KASSIE #: [id number] RICHARD: 04/08/25 09:[address]: Angie Mancini DEPT: SURGICAL PATHOLOGY RECD BY: Vinay Garcia ENTERED: 04/08/25 13:59 SP TYPE: CHARITY GLEASON DR: Dr. Eitan Michael MD Tissues: A - Gallbladder, NOS Procedures: Surgery Specimen Level III HEADER OPERATION: Robotic cholecystectomy PRE-OP DIAGNOSIS: Cholelithiasis, elevated liver function tests, epigastric pain, right upper quadrant pain TISSUE SUBMITTED: A- Gallbladder MICROSCOPIC DIAGNOSIS A. Gallbladder, robotic cholecystectomy: Chronic cholecystitis with cholelithiasis and cholesterolosis. MICROSCOPIC DESCRIPTION Slides are reviewed. GROSS DESCRIPTION A. Received in formalin labeled with the patient's name and date of . Designated as gallbladder is a 7.9 x 2.9 x 2.0 cm sainz-pink to green, predominantly intact gallbladder with attached patent cystic duct (inked black, shaved). A lymph node is not present. Opening reveals yellow-green, tenacious bile and multiple, yellow and bosselated choleliths, ranging <0.1 cm to 1.7 cm. The mucosa is dark red and granular with a maximum wall thickness of 0.3 cm. Cholesterolosis is present. Nurse Companion sections are submitted in 1 cassette. [place] 04/08/2025 CPT:51310
--- NOTE | 2025-04-08 09:14 | PCM.HP.BLA ---
History and Physical Date of Admission: 04/08/25 Date of Service: 04/06/25 MR#: [id number] Acct: [id number] Name: JESSY TEJEDA Rep #: [id number] : 1990 Provider: Dr. Angie Mancini MD Age/Sex: 34/M Location: [facility] Status: Signed Intake Vital Signs 03/10/2513:14 04/06/2515:02 Height 5 ft 11 in 5 ft 11 in Weight: 215 lb BMI 29.9 BP 128/89 H 142/75 H Blood Pressure Location Rt brachial Rt brachial Position Sitting Sitting Respiration 18 17 Pulse 72 75 Pulse Source Monitor Monitor Temp 97.2 F L Temp Source Temporal Pulse Oximetry (%) 99 100 Oxygen Delivery Method room air room air Intake Visit Reasons: MED CHECK Chief Complaint: med check/gallbladder Is patient in pain?: Yes (occasional twinges/aches right side.) Allergies No Known Allergies Allergy (Verified 04/06/25 15:03) Medications ?Medication ?Instructions ?Recorded ?Confirmed ?Type omeprazole 40 mg capsule,delayed 40 mg PO QDAY #30 caps 03/10/25 04/06/25 Rx release PFSH Medical History Cholelithiases Social History (Updated 03/10/25 @ 13:14 by Jacy De Leon LPN) Smoking Status: Never smoker alcohol intake: never substance use type: does not use HPI HPI HPI: 34-year-old male presents for follow-up for right upper quadrant pain, epigastric pain, cholelithiasis, elevated liver functions. Patient's liver functions are normal on recheck before this appointment. Patient states he does occasionally get some right upper quadrant discomfort depending on what he eats but his sour stomach has improved with the omeprazole. ROS General General: No weight change, appetite, fatigue, colon cancer, breast cancer or weakness HEENT HEENT: No difficulty swallowing, eye injury, eye surgery, swollen glands or hoarseness Endo Endocrine: No thyroid disease, diabetes mellitus, thyroid cancer, Hair loss, heat intolerance or cold intolerance Skin Skin: No rash or changing moles Musc Musculoskeletal: No back problems, arthritis, rheumatoid arthritis, gout or joint pain Cardio Cardiovascular: Yes murmur; No pacemaker, heart disease, atrial fibrillation, high blood pressure, heart attack, heart stent, palpitations, shortness of breath with exertion or chest pain Psych Psychiatric: No depression, anxiety or hearing voices Resp Respiratory: No shortness of breath, No sleep apnea, No cough, No COPD, No asthma, No emphysema and No wheezing Gastro Gastrointestinal: Yes abdominal pain, No nausea or vomiting, No diarrhea, No constipation, No blood in stool, No acid reflux, No hemorrhoids, No ulcers, Yes gallbladder problem and No black,tarry stools [place] Hematologic: No blood thinners, No blood disorders, No bleeding, No anemia and No blood clots Neuro Neurologic: No numbness, No tingling and No weakness Exam Const General: cooperative, healthy appearing, comfortable and no acute distress HENMT Head: normocephalic and atraumatic Neck Neck: supple Resp Effort & Inspection: normal respiratory effort Cardio Rate: regular rate GI Inspection: non-distended Skin General: no rashes or lesions noted Neuro General: CN's II-XI intact bilaterally Extrem General: normal to inspection Psych Mental Status: mental status grossly normal Attitude: cooperative Assessment and Plan Assessment and Plan (1) Cholelithiases: Status: Acute (2) Elevated liver function tests: Status: Acute Comment: Resolved (3) Epigastric pain: Status: Acute (4) RUQ pain: Status: Acute Orders: Orders Liver Profile 04/05/25 R10.11 - Right upper quadrant pain Plan Let patient stay on the omeprazole 40 mg p.o. daily Reviewed the anatomy with the patient and discussed the procedure: Robotic/laparoscopic cholecystectomy with possible cholangiograms, possible open. Review risks including but not limited to bleeding, infection, hernia, bile leak, retained gallstones requiring another procedure ERCP- Endoscopic Retrograde Cholangiopancreatography, injury to another organ (bile ducts, common bile duct, small bowel, etc.) and conversion to an open procedure. All questions were answered. Angie Mancini M.D. Pager: [phone] [facility] [address] [place] [address], [address] [place] [address] Office: [phone] Coding Level of Care Code Off vis,est,level 3 Diagnoses Cholelithiases K80.20 Elevated liver function tests R79.89 Epigastric pain R10.13 RUQ pain R10.11 04/06/25 1513 <Electronically signed by Angie Mancini MD> Date Angie Mancini MD
[2025-04-08] MEDS: Cefazolin 1 GM/5 ML Vial 2 GM IV (10:00)
[2025-04-08] MEDS: Lidocaine 1% (5 ml sdv) 5 ML Vial IV (10:05)
[2025-04-08] MEDS: fentaNYL 100 MCG/2 ML Ampul 200 MCG IV (10:42)
[2025-04-08] MEDS: Bupiv/Epi 0.25% 30 ML Vial (11:09)
--- NOTE | 2025-04-08 11:10 | PCM.OPRPT ---
Operative Report (Standard) Operative Information Date of Procedure: 04/08/25 Pre-Operative Diagnosis: Cholelithiasis, right upper quadrant pain Post-Operative Diagnosis: Same Surgery/Procedure Performed: Robotic cholecystectomy with ICG it service continuity supervisor: Yes Timber Management Specialist: Doris Kuhn Tasks completed by first sampler: Opening & closing Type of Anesthesia: General/Supplemental RN Documented Start/Stop Times: Operation Date: 04/08/25 09:00 Case Time Into Pre-Op 04/08/25 08:16 Anesthesia Start 04/08/25 10:00 Into Room 04/08/25 10:00 Procedure Start 04/08/25 10:15 Procedure End 04/08/25 11:17 Anesthesia End 04/08/25 11:23 Out of Room 04/08/25 11:23 Into Recovery 04/08/25 11:25 Into Phase II Recovery 04/08/25 12:01 Out of Recovery 04/08/25 12:01 Procedure Start Time: 10:15 Procedure Stop Time: 11:23 Select all DRAINS/GRAFTS/IMPLANTS that apply: None Special Medications: Ancef 2 g IV x 1 Estimated Blood Loss: < 10 cc Specimen collected: Yes Description of specimen(s) removed: Gallbladder Description of surgery: Indications: this is a 34 year-old male who developed abdominal pain/nausea/vomiting and on workup was found to have cholelithiasis with elevated liver functions (AST and ALT) which resolved, with a normal common bile duct. Laparoscopic cholecystectomy was elected. Description procedure: The patient was placed on operating table in supine position. A timeout was completed verifying correct patient, procedure, site, position and special equipment prior to beginning procedure. General Anesthesia was induced. The abdomen was prepped and draped in usual sterile fashion. An incision was made in the natural skin line below the umbilicus. The fascia was elevated and incised. The peritoneum was elevated and incised. Entry into the peritoneum was confirmed visually and no bowel was noted in the vicinity of the incision. Bone trocar was placed. The abdomen was insufflated with carbon dioxide to a pressure of 12-15 mmHg. Patient tolerated insufflation well. The laparoscope was then inserted and abdomen inspected. No injuries from initial trocar placement were noted. Additional trochars were then inserted in the following locations 8 mm trocar left upper quadrant and 2 more 8 mm trochars in right lower quadrant and left lower quadrant. The abdomen was inspected no abnormalities were found. The table is placed in reverse Trendelenburg position with the right side up. Robot was docked. The adhesions between the gallbladder and omentum were taken down carefully. The dome of the gallbladder was grasped with atraumatic grasper passed through the lateral port and retracted over the dome of the liver. Infundibulum was then grasped with atraumatic grasper through the midclavicular port and retracted to the right lower quadrant. Cystic duct was identified and ICG was used to aid in visualization. Cystic duct was triply clipped and divided. The cystic artery was posterior to the mid gallbladder this was also clipped with 2 clips remaining and divided with electrocautery of the artery near the gallbladder. The gallbladder then dissected from its peritoneal attachments by electrocautery. Spillage of bile was suctioned and irrigated with saline. Hemostasis was checked and the gallbladder was removed using the endoscopic retrieval bag through the umbilical port. The gallbladder is passed off table as specimen. The gallbladder fossa was irrigated with saline and hemostasis obtained. There is no evidence of bleeding from the gallbladder fossa or cystic artery leakage of bile from the cystic duct stump. Secondary trochars removed under direct vision. No bleeding was noted the trocar sites. The laparoscope was withdrawn and umbilical trocar removed. The abdomen was allowed to collapse. The fascia of the 12 mm trocar was closed with a [id number] 0 Vicryl suture. The skin was closed with sutures of 4-0 Monocryl and Steri-Strips. The patient was extubated. The patient tolerated procedure well and was taken to the postanesthesia care unit in stable condition. Surgical Findings: See operative note Complications Complications: No
--- NOTE | 2025-04-08 11:18 | DCINST_ITS ---
Discharge Instructions Diet Discharge Diet: Light diet - advance as tolerated Activity Discharge Activity: May Not Drive (while taking narcotic pain medications.) May shower in (days): 1 Lifting Restrictions: no lifting >20 lbs x 2 wks, no strenuous exercise for 4 wks Dressing / Incision Call your doctor if your incision/area has: Continuous Slow Oozing, Sudden Increased Bleeding, Increased Pain/ Swelling, Increased Redness, Foul Smelling Discharge and Swelling at the incision site Call your doctor if you observe: Fever of 101 or Higher Remove Dressing in: 2 days Cleanse incision/area with: Soap & Water Additional Dressing/Incision Instructions:: Steri-Strips will fall off in 7 to 10 days, if they do not fall off okay to remove after 10 days. Follow Up Care Please Follow Up With: Angie Mancini MD When: Call the office for a follow-up appointment 2 weeks; after 5 PM and on the weekends call [phone] with any concerns. Test Results: Test results from this visit will be discussed in further detail at your follow- up appointment, if applicable. Discharge Plan Admission Attending Provider: Angie Mancini Primary Care Provider: Eitan Michael Instructions Additional Instructions / Restrictions: Okay to take ibuprofen 400-600 mg PO q6hr PRN along with the hydrocodone/acetaminophen. Avoid Tylenol (or watch how much Tylenol ingesting during the day) since there is already Tylenol in the hydrocodone/acetaminophen. Take all pain meds with food. Hydrocodone/acetaminophen can cause constipation recommend taking daily stool softener (i.e. Colace/docusate) while taking the pain meds. Recommend starting some MiraLAX in 1 to 2 days if no bowel movement. If still no bowel movement the following day recommend taking magnesium citrate half the bottle and waiting 4-6 hours if still no results take the other half the bottle. Print Language: Lithuanian Discharge Orders/Prescriptions Prescriptions: New hydrocodone-acetaminophen 5-325 mg tablet 1 tab PO Q6H PRN (Reason: pain) 3 Days Qty: 10 0RF Continued omeprazole 40 mg capsule,delayed release(DR/EC) 40 mg PO QDAY Qty: 30 3RF Rx Instructions: swallow whole; do not crush, chew, dissolve, cut, break Referrals / Follow Up: Eitan Michael MD [Primary Care Provider] - Disposition Disposition (needs filled in before D/C Order can be placed): Home, Self Care
--- NOTE | 2025-04-08 12:18 | PCM.POST.ANE ---
Anesthesia: Postop Eval I Current Vital Signs Temperature: 97.1 F Pulse Rate: 84 Blood Pressure: 149/100 Respiratory Rate: 16 Pulse Ox: 94 Oxygen Delivery Method: Room Air Assessment Airway patent: Yes Spontaneous unlabored respirations: Yes Mental status: Awake and Calm nausea: No Vomiting: No Anesthesia Complication: No Fluid Hydration Crystalloid volume administer (ml): 800 Total IV fluid infused: 800 Progress Note Anesthesia document: Postop Eval 1 completed: Yes
[2025-04-08] MEDS: HYDROcodone Bitartrate/Apap 5/325 Tablet PO (12:20)
--- NOTE | 2025-04-08 13:46 | POSTOPAN2_ITS ---
Anesthesia Postop Eval I Sum Postop Eval Completion status Anesthesia document: Postop Eval 1 completed: Yes Anesthesia Postop Eval I Summary Anesthesia Postop Eval I Summary: Anesthesia Postop Eval I: Assessment Summary Airway patent Yes 04/08/25 12:18 [email or web address] Spontaneous unlabored Yes 04/08/25 12:18 [email or web address] respirations Mental status Awake,Calm 04/08/25 12:18 [email or web address] nausea No 04/08/25 12:18 [email or web address] Vomiting No 04/08/25 12:18 [email or web address] Anesthesia Postop Eval I: Fluid Summary Crystalloid volume administer 800 04/08/25 12:18 [email or web address] (ml) Colloids volume administered ( ml) Blood Product volume administered (ml) Total IV fluid infused 800 04/08/25 12:18 [email or web address] Anesthesia Postop Eval I: Summary Notes Anesthesia Complication No 04/08/25 12:18 [email or web address] Anesthesia Complication Comment: Post-operative progress note Anesthesia: Postop Eval II Evaluation Mental status: Awake and Calm Pain Level: 0 nausea: No Vomiting: No Complications Anesthesia Complication: No
--- NOTE | 2025-04-08 13:46 | PCM.POSTANE2 ---
Anesthesia Postop Eval I Sum Postop Eval Completion status Anesthesia document: Postop Eval 1 completed: Yes Anesthesia Postop Eval I Summary Anesthesia Postop Eval I Summary: Anesthesia Postop Eval I: Assessment Summary Airway patent Yes 04/08/25 12:18 [email or web address] Spontaneous unlabored Yes 04/08/25 12:18 [email or web address] respirations Mental status Awake,Calm 04/08/25 12:18 [email or web address] nausea No 04/08/25 12:18 [email or web address] Vomiting No 04/08/25 12:18 [email or web address] Anesthesia Postop Eval I: Fluid Summary Crystalloid volume administer 800 04/08/25 12:18 [email or web address] (ml) Colloids volume administered ( ml) Blood Product volume administered (ml) Total IV fluid infused 800 04/08/25 12:18 [email or web address] Anesthesia Postop Eval I: Summary Notes Anesthesia Complication No 04/08/25 12:18 [email or web address] Anesthesia Complication Comment: Post-operative progress note Anesthesia: Postop Eval II Evaluation Mental status: Awake and Calm Pain Level: 0 nausea: No Vomiting: No Complications Anesthesia Complication: No
== END 2025-04-08 12:57 | disposition home or self-care (01) ==
LOC: SDC 07:37 → AC 07:39
PROVIDERS: PCP Family Medicine; Referring Provider Surgery; Visit Provider Surgery
PROC: 0FT44ZZ Resection of Gallbladder, Percutaneous Endoscopic Approach (ICD-10-PCS; CPT 47562; principal; 2025-04-08 08:40)
DX: K80.64 Calculus of gallbladder and bile duct with chronic cholecystitis without obstruction (principal); K21.9 Gastro-esophageal reflux disease without esophagitis; K66.0 Peritoneal adhesions (postprocedural) (postinfection); Z79.899 Other long term (current) drug therapy; Z87.891 Personal history of nicotine dependence
CPT/HCPCS: 47563; S2900; 00790; 88304; 93005; J2405